=== PATIENT | female | born 1990 | race American Indian/Alaskan Native ===

== ENCOUNTER 2017-06-12 15:34 | Emergency (ER) | payer MEDICAID ==
[2017-06-12 16:45] VITALS: BP 106/71
--- NOTE | 2017-06-12 17:24 | Emergency Department Report ---
Entered by KEYANA SANCHEZ, acting as scribe for LEFTY FISCHER FNP. <LEFTY FISCHER - Last Filed: 06/12/17 17:19> ED Female HPI - General Chief complaint: Urogenital-Female Stated complaint: VAGINAL PAIN Time Seen by Provider: 06/12/17 17:00 Source: patient Mode of arrival: Ambulatory Limitations: No Limitations - History of Present Illness Initial comments: 26 y/o female presents to the ED c/o white vaginal discharge x 4 days. Associated symptoms include vaginal pain, dysuria and itching but she denies abdominal pain, nausea, vomiting, fever and chills. Patient states pain is worse after showering and that she recently used a different body wash with sea salt. Admits to unprotected sex with one partner. No alleviating factors but aggravated by sitting down. Allergic to hydrocodone. MD Complaint: vaginal discharge Onset/Timin -: days(s) Radiation: non-radiating Quality: other (itching) Consistency: constant Improves with: none Worsens with: other (sitting down) Associated Symptoms: dysuria, other (itching, vaginal pain). denies: abdominal pain, nausea/vomiting, fever/chills - Related Data Sexually active: Yes Previous Rx's Medication Instructions Recorded Last Taken Type Ciprofloxacin HCl [Ciloxan 0.3% 1 drop OP Q1HR #1 bottle 03/03/15 2 Days Ago Rx OPTH SOLN] 1 drop Ferrous Sulfate [Feosol 325 MG tab] 325 mg PO TID #90 tablet 08/30/15 Unknown Rx Ibuprofen [Motrin 800 MG tab] 800 mg PO Q8HR PRN #90 tablet 08/30/15 Unknown Rx oxyCODONE /ACETAMINOPHEN [Percocet 1 tab PO Q6HR PRN #30 tablet 08/30/15 Unknown Rx 5/325 mg] Ferrous Sulfate [Feosol 325 MG tab] 325 mg PO BID #60 tablet 11/08/16 Unknown Rx Ibuprofen [Motrin 600 MG tab] 600 mg PO Q6H #30 tablet 11/08/16 Unknown Rx Vit-Fe Fumar-FA [ 1 each PO QDAY #30 tablet 11/08/16 Unknown Rx Vitamin] Cephalexin [Keflex] 500 mg PO BID #14 capsule 06/12/17 Unknown Rx Clindamycin 2% [Clindamycin 2% VAG 1 applicatio VG QHS #1 package 06/12/17 Unknown Rx CREAM] Allergies Allergy/AdvReac Type Severity Reaction Status Date / Time hydrocodone Allergy Nausea Verified 08/30/15 10:38 ED Review of Systems Comment: All other systems reviewed and negative Constitutional: denies: chills, fever Eyes: denies: eye pain, eye discharge, vision change ENT: denies: ear pain, throat pain Respiratory: denies: cough, shortness of breath, wheezing Cardiovascular: denies: chest pain, palpitations Endocrine: no symptoms reported Gastrointestinal: denies: abdominal pain, nausea, vomiting Genitourinary: dysuria, discharge (white), other (vaginal pain, itching) Musculoskeletal: denies: back pain, joint swelling, arthralgia Skin: denies: rash, lesions Neurological: denies: headache, weakness, paresthesias Psychiatric: denies: anxiety, depression Hematological/Lymphatic: denies: easy bleeding, easy bruising ED Past Medical Hx - Past Medical History Previous Medical History?: No Hx Hypertension: No Hx Heart Attack/AMI: No Hx Congestive Heart Failure: No Hx Diabetes: No Hx Deep Vein Thrombosis: No Hx Pulmonary Embolism: No Hx Liver Disease: No Hx Renal Disease: No Hx Sickle Cell Disease: No Hx Headaches / Migraines: No Hx Seizures: No Hx Asthma: No Hx COPD: No Hx Tuberculosis: No Hx HIV: No - Surgical History Past Surgical History?: Yes Additional Surgical History: C Section - Social History Smoking Status: Never Smoker Substance Use Type: None - Medications Home Medications: Home Medications Medication Instructions Recorded Confirmed Last Taken Type Ciprofloxacin HCl [Ciloxan 0.3% 1 drop OP Q1HR #1 bottle 03/03/15 11/08/16 2 Days Ago Rx OPTH SOLN] 1 drop Ferrous Sulfate [Feosol 325 MG tab] 325 mg PO TID #90 tablet 08/30/15 11/08/16 Unknown Rx Ibuprofen [Motrin 800 MG tab] 800 mg PO Q8HR PRN #90 tablet 08/30/15 11/08/16 Unknown Rx oxyCODONE /ACETAMINOPHEN [Percocet 1 tab PO Q6HR PRN #30 tablet 08/30/15 Unknown Rx 5/325 mg] Ferrous Sulfate [Feosol 325 MG tab] 325 mg PO BID #60 tablet 12/25/16 Unknown Rx Ibuprofen [Motrin 600 MG tab] 600 mg PO Q6H #30 tablet 11/08/16 Unknown Rx Vit-Fe Fumar-FA [ 1 each PO QDAY #30 tablet 11/08/16 Unknown Rx Vitamin] Cephalexin [Keflex] 500 mg PO BID #14 capsule 06/12/17 Unknown Rx Clindamycin 2% [Clindamycin 2% VAG 1 applicatio VG QHS #1 package 06/12/17 Unknown Rx CREAM] ED Physical Exam - General Limitations: No Limitations General appearance: alert, in no apparent distress - Head Head exam: Present: atraumatic, normocephalic, normal inspection - Eye Eye exam: Present: normal appearance - ENT ENT exam: Present: mucous membranes moist - Neck Neck exam: Present: normal inspection - Respiratory Respiratory exam: Present: normal lung sounds bilaterally. Absent: respiratory distress - Cardiovascular Cardiovascular Exam: Present: regular rate, normal rhythm, normal heart sounds. Absent: systolic murmur, diastolic murmur, rubs, gallop - GI/Abdominal GI/Abdominal exam: Present: soft, normal bowel sounds - External exam: Present: normal external exam Speculum exam: Present: vaginal discharge, cervical discharge Bi-manual exam: Present: normal bi-manual exam. Absent: cervical motion tendernes, adnexal tenderness - Extremities Exam Extremities exam: Present: normal inspection - Back Exam Back exam: Present: normal inspection - Neurological Exam Neurological exam: Present: alert, oriented X3 - Psychiatric Psychiatric exam: Present: normal affect, normal mood - Skin Skin exam: Present: warm, dry, intact, normal color. Absent: rash - Other Other exam information: flatwork tier present during external/speculum/bi-manual exam Keyana Sanchez ED Course Vital Signs 06/12/17 16:38 Temperature 98.7 F Pulse Rate 86 Respiratory 18 Rate Blood Pressure 106/71 O2 Sat by Pulse 99 Oximetry ED Medical Decision Making - Medical Decision Making 26 year old female patient presents today with vaginal discharge. Wet prep done . reveals [...].Patient is in no acute distress at this time. She will be discharged home and is encouraged to follow up with a primary care provider. She is encouraged to return to the emergency room for any worsening symptoms. ED Disposition Clinical Impression: Positive test UTI (urinary tract infection) Qualifiers: Urinary tract infection type: acute cystitis Hematuria presence: without hematuria Qualified Code(s): N30.00 - Acute cystitis without hematuria Vaginitis Qualifiers: Chronicity: acute Qualified Code(s): N76.0 - Acute vaginitis Disposition: TO HOME OR SELFCARE Condition: Good Instructions: Vaginitis (ED), Urinary Tract Infection in Women (ED) Additional Instructions: follow up with [facility] in 3 days as scheduled [facility] [phone] Prescriptions: Clindamycin 2% [Clindamycin 2% VAG CREAM] 1 applicatio VG QHS #1 package Cephalexin [Keflex] 500 mg PO BID #14 capsule Referrals: PRIMARY CARE, [Primary Care Provider] - 3-5 Days Forms: Work/School Release Form(ED) <MALIK CADENA - Last Filed: 06/12/17 17:54> ED Medical Decision Making - Lab Data Laboratory Tests 06/12/17 16:50 Urine Color Yellow Urine Turbidity Clear Urine pH 6.0 Ur Specific [place] 1.019 Urine Protein <15 mg/dl Urine Glucose (UA) Neg Urine Ketones Neg Urine Blood Sm Urine Nitrite Neg Ur Reducing Substances Not Reportable Urine Bilirubin Neg Urine Ictotest Not Reportable Urine Urobilinogen < 2.0 Ur Leukocyte Esterase Lg Urine WBC (Auto) 32.0 H Urine RBC (Auto) 7.0 U Epithel Cells (Auto) 4.0 Urine Mucus 2+ HGG Positive, ED Disposition Is pt being admited?: No Does the pt Need Aspirin: No Time of Disposition: 17:53 This documentation as recorded by the LAURA eddy ELIZABETH,accurately reflects the service I personally performed and the decisions made by AMADO smith DENETRA L, LUIS.
[2017-06-12 17:29] LABS: Bilirubin,Urine NEG (Negative); Blood,Urine SM (Negative); Ketones,Urine NEG (Negative); Leukocyte Esterase,Urine LG (Negative); Mucus,Urine 2+ /HPF; Nitrite,Urine NEG (Negative); Protein,Urine <15 mg/dL mg/dL (Negative); Urobilinogen,Urine < 2.0 mg/dL (<2.0)
== END 2017-06-12 17:56 | disposition home or self-care (01) ==
LOC: ED 15:34
DX: N30.00 Acute cystitis without hematuria (principal); Z33.1 Pregnant state, incidental; Z88.8 Allergy status to other drugs, medicaments and biological substances
CPT/HCPCS: 81001; 81025; 87210; 87591; 99284

== ENCOUNTER 2017-10-08 11:11 | Emergency (ER) | payer MEDICAID ==
[2017-10-08 11:29] VITALS: BP 118/95
[2017-10-08 13:38] LABS: Bacteria,Urine 2+ /HPF (Negative); Bilirubin,Urine NEG (Negative); Blood,Urine SM (Negative); Ketones,Urine NEG (Negative); Leukocyte Esterase,Urine LG (Negative); Mucus,Urine FEW /HPF; Nitrite,Urine NEG (Negative); Protein,Urine <15 mg/dL mg/dL (Negative); Urobilinogen,Urine < 2.0 mg/dL (<2.0)
[2017-10-08] MEDS ORDERED: ROCEPHIN IM ONE (13:54)
[2017-10-08] MEDS ORDERED: ZITHROMAX PO ONE (13:54)
[2017-10-08] MEDS ORDERED: XYLOCAINE 1% MPF 5 mL INFILTRATI ONE (13:54)
--- NOTE | 2017-10-08 13:58 | Emergency Department Report ---
ED Female HPI - General Chief complaint: Urogenital-Female Stated complaint: VAGINAL DISCOMFORT Time Seen by Provider: 10/08/17 12:47 Source: patient Mode of arrival: Ambulatory Limitations: No Limitations - History of Present Illness MD Complaint: dysuria, possible STD Onset/Timin -: week(s) - Related Data Previous Rx's Medication Instructions Recorded Last Taken Type Ciprofloxacin HCl [Ciloxan 0.3% 1 drop OP Q1HR #1 bottle 03/03/15 2 Days Ago Rx OPTH SOLN] ~08/29/15 1 drop Ferrous Sulfate [Feosol 325 MG tab] 325 mg PO TID #90 tablet 08/30/15 Unknown Rx Ibuprofen [Motrin 800 MG tab] 800 mg PO Q8HR PRN #90 tablet 08/30/15 Unknown Rx oxyCODONE /ACETAMINOPHEN [Percocet 1 tab PO Q6HR PRN #30 tablet 08/30/15 Unknown Rx 5/325 mg] Ferrous Sulfate [Feosol 325 MG tab] 325 mg PO BID #60 tablet 11/08/16 Unknown Rx Ibuprofen [Motrin 600 MG tab] 600 mg PO Q6H #30 tablet 11/08/16 Unknown Rx Vit-Fe Fumar-FA [ 1 each PO QDAY #30 tablet 11/08/16 Unknown Rx Vitamin] Cephalexin [Keflex] 500 mg PO BID #14 capsule 06/12/17 Unknown Rx Clindamycin 2% [Clindamycin 2% VAG 1 applicatio VG QHS #1 package 06/12/17 Unknown Rx CREAM] Clotrimazole [3-Day Vaginal Cream] 21 gm VG QHS #1 cream.appl 10/08/17 Unknown Rx Nitrofurantoin Monohyd/M-Cryst 100 mg PO BID #14 capsule 10/08/17 Unknown Rx [Macrobid 100 mg Capsule] metroNIDAZOLE [Metronidazole] 500 mg PO BID #14 tablet 10/08/17 Unknown Rx Allergies Allergy/AdvReac Type Severity Reaction Status Date / Time hydrocodone Allergy Nausea Verified 08/30/15 10:38 ED Review of Systems ROS: Stated complaint: VAGINAL DISCOMFORT Other details as noted in HPI ED Past Medical Hx - Past Medical History Hx Hypertension: No Hx Heart Attack/AMI: No Hx Congestive Heart Failure: No Hx Diabetes: No Hx Deep Vein Thrombosis: No Hx Pulmonary Embolism: No Hx Liver Disease: No Hx Renal Disease: No Hx Sickle Cell Disease: No Hx Headaches / Migraines: No Hx Seizures: No Hx Asthma: No Hx COPD: No Hx Tuberculosis: No Hx HIV: No - Surgical History Additional Surgical History: C Section - Social History Smoking Status: Never Smoker Substance Use Type: None - Medications Home Medications: Home Medications Medication Instructions Recorded Confirmed Last Taken Type Ciprofloxacin HCl [Ciloxan 0.3% 1 drop OP Q1HR #1 bottle 03/03/15 11/08/16 2 Days Ago Rx OPTH SOLN] ~08/29/15 1 drop Ferrous Sulfate [Feosol 325 MG tab] 325 mg PO TID #90 tablet 08/30/15 11/08/16 Unknown Rx Ibuprofen [Motrin 800 MG tab] 800 mg PO Q8HR PRN #90 tablet 08/30/15 11/08/16 Unknown Rx oxyCODONE /ACETAMINOPHEN [Percocet 1 tab PO Q6HR PRN #30 tablet 08/30/15 Unknown Rx 5/325 mg] Ferrous Sulfate [Feosol 325 MG tab] 325 mg PO BID #60 tablet 11/08/16 Unknown Rx Ibuprofen [Motrin 600 MG tab] 600 mg PO Q6H #30 tablet 11/08/16 Unknown Rx Vit-Fe Fumar-FA [ 1 each PO QDAY #30 tablet 11/08/16 Unknown Rx Vitamin] Cephalexin [Keflex] 500 mg PO BID #14 capsule 06/12/17 Unknown Rx Clindamycin 2% [Clindamycin 2% VAG 1 applicatio VG QHS #1 package 06/12/17 Unknown Rx CREAM] Clotrimazole [3-Day Vaginal Cream] 21 gm VG QHS #1 cream.appl 10/08/17 Unknown Rx Nitrofurantoin Monohyd/M-Cryst 100 mg PO BID #14 capsule 10/08/17 Unknown Rx [Macrobid 100 mg Capsule] metroNIDAZOLE [Metronidazole] 500 mg PO BID #14 tablet 10/08/17 Unknown Rx ED Physical Exam - General Limitations: No Limitations ED Course Vital Signs 10/08/17 11:25 Temperature 98.6 F Pulse Rate 86 Respiratory 20 Rate Blood Pressure 118/95 O2 Sat by Pulse 99 Oximetry Critical care attestation.: If time is entered above; I have spent that time in minutes in the direct care of this critically ill patient, excluding procedure time. ED Disposition Clinical Impression: Bacterial vaginosis Vaginal discharge during Qualifiers: Trimester: third trimester Qualified Code(s): O26.893 - Other specified related conditions, third trimester; N89.8 - Other specified noninflammatory disorders of vagina; N89.8 - Other specified noninflammatory disorders of vagina Disposition: - TO HOME OR SELFCARE Is pt being admited?: No Does the pt Need Aspirin: No Condition: Stable Instructions: Bacterial Vaginosis (ED), Vulvovaginal Candidiasis (ED) Prescriptions: Clotrimazole [3-Day Vaginal Cream] 21 gm VG QHS #1 cream.appl metroNIDAZOLE [Metronidazole] 500 mg PO BID #14 tablet Nitrofurantoin Monohyd/M-Cryst [Macrobid 100 mg Capsule] 100 mg PO BID #14 capsule Referrals: [facility] [Provider Group] - 3-5 Days Forms: STI Treatment and Prevention, Work/School Release Form(ED) Time of Disposition: 13:57
== END 2017-10-08 14:23 | disposition home or self-care (01) ==
LOC: ED 11:11
DX: O26.893 Other specified pregnancy related conditions, third trimester (principal); N76.0 Acute vaginitis; Z98.890 Other specified postprocedural states; Z88.6 Allergy status to analgesic agent; Z3A.00 Weeks of gestation of pregnancy not specified
CPT/HCPCS: 81001; 87086; 87210; 87591; 96372; 99283; J0696

== ENCOUNTER 2017-12-27 14:51 | Emergency (ER) | payer MEDICAID | END 2017-12-27 15:00 | disposition left against medical advice (07) | LOC: ED 14:51 | DX: N89.8 Other specified noninflammatory disorders of vagina (principal); Z53.21 Procedure and treatment not carried out due to patient leaving prior to being seen by health care provider ==

== ENCOUNTER 2018-01-09 07:32 | Inpatient (IN) | payer MEDICAID ==
[2018-01-09] MEDS ORDERED: LACTATED RINGERS 2,000 ML ONE (08:03)
[2018-01-09] MEDS ORDERED: REGLAN ONE (08:05)
[2018-01-09] MEDS ORDERED: PEPCID IV ONE ×2 (08:05→08:06)
[2018-01-09] MEDS ORDERED: PITOCin/NS 20 UNIT/1000ML DRIP 20,000 MILLIUNITS/1,000 ML BAG IV ONE (08:05)
[2018-01-09] MEDS ORDERED: ANCEF/STERILE WATER 2 GM/20 ML 2 GM/20 ML SYRINGE IV ONE (08:05)
[2018-01-09] MEDS ORDERED: BICITRA ONE (08:05)
[2018-01-09] MEDS ORDERED: REGLAN IV ONE (08:06)
[2018-01-09] MEDS ORDERED: BICITRA PO ONE (08:06)
--- NOTE | 2018-01-09 08:10 | History and Physical Report ---
History of Present Illness Date of examination: 01/09/18 (Pt presents to Triage via EMS in labor Pt has not had PNC) Chief complaint: contractions starting @ 2200 last evening Pt arrived by EMS History of present illness: This is a unconfirmed EDC pt states it was 01/06/18 based on an US she had some time back at a place across the street from the hospital. 05-29-14 Primary section intolerance 08-30-15 Repeat section IUGR +GBS 11-07-16 no care precipitous labor Pt denies any other surgeries Denies any medical history Admits to marijuana use Pt states she had"some" care but cannot remember the last time she was seen. She did not receive Rhogam despite being Rh negative. Past History - Obstetrical History Expected Date of Delivery: 01/06/18 (per the pt) Actual Gestation: 40 Week(s) 3 Day(s) : 4 Para: 3 (2 previous c/s) Hx # Term Pregnancies: 3 Number of Living Children: 3 Medications and Allergies Allergies Allergy/AdvReac Type Severity Reaction Status Date / Time hydrocodone Allergy Nausea Verified 08/30/15 10:38 Home Medications Medication Instructions Recorded Confirmed Last Taken Type Ciprofloxacin HCl [Ciloxan 0.3% 1 drop OP Q1HR #1 bottle 03/03/15 11/08/16 2 Days Ago Rx OPTH SOLN] ~08/29/15 1 drop Ferrous Sulfate [Feosol 325 MG tab] 325 mg PO TID #90 tablet 08/30/15 11/08/16 Unknown Rx Ibuprofen [Motrin 800 MG tab] 800 mg PO Q8HR PRN #90 tablet 08/30/15 11/08/16 Unknown Rx oxyCODONE /ACETAMINOPHEN [Percocet 1 tab PO Q6HR PRN #30 tablet 08/30/15 Unknown Rx 5/325 mg] Ferrous Sulfate [Feosol 325 MG tab] 325 mg PO BID #60 tablet 11/08/16 Unknown Rx Ibuprofen [Motrin 600 MG tab] 600 mg PO Q6H #30 tablet 11/08/16 Unknown Rx Vit-Fe Fumar-FA [ 1 each PO QDAY #30 tablet 11/08/16 Unknown Rx Vitamin] Cephalexin [Keflex] 500 mg PO BID #14 capsule 06/12/17 Unknown Rx Clindamycin 2% [Clindamycin 2% VAG 1 applicatio VG QHS #1 package 06/12/17 Unknown Rx CREAM] Clotrimazole [3-Day Vaginal Cream] 21 gm VG QHS #1 cream.appl 10/08/17 Unknown Rx Nitrofurantoin Monohyd/M-Cryst 100 mg PO BID #14 capsule 10/08/17 Unknown Rx [Macrobid 100 mg Capsule] metroNIDAZOLE [Metronidazole] 500 mg PO BID #14 tablet 10/08/17 Unknown Rx Active Meds: Active Medications Citric Acid/Sodium Citrate (Bicitra) 30 ml PO ONCE ONE Stop: 01/09/18 08:07 Famotidine (Pepcid) 20 mg IV ONCE ONE Stop: 01/09/18 08:07 Cefazolin Sodium (Ancef/Sterile Water 2 Gm/20 Ml) 2 gm in 20 mls @ 80 mls/hr IV PREOP NR PRN Reason: Protocol Lactated Ringer's (Lactated Ringers) 1,000 mls @ 2,250 mls/hr IV PREOP CAROLINE Stop: 01/10/18 09:27 Oxytocin/Sodium Chloride (Pitocin/Ns 20 Unit/1000ml Drip) 20 units in 1,000 mls @ 0 mls/hr IV TITR CAROLINE PRN Reason: As Directed Metoclopramide HCl (Reglan) 10 mg IV ONCE ONE Stop: 01/09/18 08:07 - Vital Signs Vital signs: Vital Signs Pulse Pulse Ox 87 99 01/09/18 07:42 01/09/18 07:42 Temp Pulse Resp BP Pulse Ox 113 H 20 135/86 99 01/09/18 08:07 01/09/18 07:52 01/09/18 07:53 01/09/18 08:07 - Physical Exam Breasts: Cardiovascular: Regular rate, Normal S1, Normal S2 Lungs: Positive: Clear to auscultation, Normal air movement Abdomen: Positive: normal appearance, soft, normal bowel sounds. Negative: distention, tenderness Genitourinary (Female): Positive: normal external genitalia, normal perenium Vulva: both: normal Vagina: Positive: normal moisture. Negative: discharge Cervix: Negative: lesion, discharge Uterus: Positive: normal size, normal contour Adnexa: both: normal Anus/Rectum: Positive: normal perianal skin, heme negative. Negative: rectal mass, hemorrhoids Extremities: Positive: edema Deep Tendon Reflex Grade: Normal +2 - Obstetrical FHR: category 1 Uterine Contraction Monitor Mode: External Cervical Dilatation: 4 (BBOW) Cervical Effacement Percentage: 90 station: -1 Uterine Contraction Frequency (min): 5-6 Uterine Contraction Duration: 45 Uterine Contraction Pattern: Regular Uterine Tone Measurement Phase: Resting Uterine Contraction Intensity: Mild Results Result Diagrams: 01/09/18 08:15 All other labs normal. NO CARE Assessment and Plan - Patient Problems (1) Insufficient care Onset Date: ~01/09/18 Current Visit: Yes Status: Acute Qualifiers: Trimester: third trimester Qualified Code(s): O09.33 - Supervision of with insufficient care, third trimester Plan to address problem: 27yo previous c/s X 2 one Arrived via EMS in labor Pt crying requesting Explained to pt that [facility] does not offer Pt has not had PNC US ordered OB labs ordered. notified of pt's arrival Order given to move forward with repeat c /s Consents signed.
[2018-01-09] MEDS: LACTATED RINGERS 1,000 ML IV SCH ×2 (08:30→09:16)
[2018-01-09 08:39] LABS: Basophils # (Auto) 0.1 K/mm3 (0.0-0.1); Basophils % (Auto) 0.8 % (0.0-1.8); Eosinophils # (Auto) 0.1 K/mm3 (0.0-0.4); Eosinophils % (Auto) 0.6 % (0.0-4.3); Hematocrit 31.1 % (30.3-42.9); Hemoglobin 9.6 gm/dl (10.1-14.3); Mean Corpuscular HGB Conc 31 % (30-34); Mean Corpuscular Volume 76 fl (79-97); Monocytes # (Auto) 0.8 K/mm3 (0.0-0.8); Monocytes % (Auto) 9.1 % (0.0-7.3); Platelet Count 604 K/mm3 (140-440); Red Cell Distribution Width 19.5 % (13.2-15.2)
[2018-01-09 08:45] LABS: Mean Corpuscular Hemoglobin 23 pg (28-32)
[2018-01-09] MEDS ORDERED: ANCEF/STERILE WATER 2 GM/20 ML 2 GM/20 ML SYRINGE IV NR (09:00)
[2018-01-09] MEDS ORDERED: PITOCin/NS 20 UNIT/1000ML DRIP 20 UNITS/1,000 ML BAG IV SCH ×2 (09:00→12:19)
[2018-01-09 09:07] LABS: Rubella IgG Antibody Immune (Immune)
--- NOTE | 2018-01-09 09:20 | Ultrasound Report ---
History: No care. Gestation: Single Position: Cephalic Amniotic Fluid: AMINA = 12.3 cm Placenta: The right lateral Placental Grade: 2 Heart Rate: 126 BPM ANATOMY VISUALIZED: Normal. Stomach Kidneys Bladder Diaphragm 4 Chamber Heart Heart 3 Vessel Cord Abd. Cord Insert nonvisualized. SPINE VISUALIZED: Longitudinal Transverse AP Limited spine due to position. BPD: 8.8 cm = 35 w the d HC: 31.6 cm = 35 w 4 point d AC: 29.6 cm = 33 w 4 d FL: 7.2 cm = 26 w 5 d HC/AC Ratio: 1.07 Cephalic Index: 81.2 Estimated Weight: 2535 grams Clinical age = 40 w 4 d EDC: 01/05/18 US Gest. Age = 35 w 2 d EDC: 02/11/18
[2018-01-09 09:31] LABS: Hepatitis C Virus Antibody Non-Reactive (NonReactive)
[2018-01-09 09:51] LABS: Bilirubin,Urine NEG (Negative); Blood,Urine NEG (Negative); Color,Urine Straw (Yellow); Protein,Urine <15 mg/dL mg/dL (Negative); Urobilinogen,Urine < 2.0 mg/dL (<2.0)
[2018-01-09] MEDS ORDERED: ASTRAMORPH PF 10MG/10ML ONE (09:51)
[2018-01-09 09:55] LABS: WBC,Urine < 1.0 /HPF (0.0-6.0)
[2018-01-09] MEDS ORDERED: WATER FOR IRRIG STERILE IR ONE (10:00)
[2018-01-09] MEDS ORDERED: NACL 0.9% IR ONE (10:01)
[2018-01-09 10:12] LABS: Amphetamine Screen,Urine PRESUMPTIVE NEGATIVE; Benzodiazepines Screen,Urine PRESUMPTIVE NEGATIVE; Cannabinoid Screen,Urine PRESUMPTIVE NEGATIVE; Cocaine Screen,Urine PRESUMPTIVE NEGATIVE; Methadone Screen,Urine PRESUMPTIVE NEGATIVE; Opiate Screen,Urine PRESUMPTIVE NEGATIVE
[2018-01-09] MEDS ORDERED: XYLOCAINE MPF 2% ONE ×2 (10:14→10:16)
[2018-01-09] MEDS ORDERED: ZOFRAN ONE (10:30)
[2018-01-09] MEDS ORDERED: NEO SYNEPHRINE/NS Syringe(OR USE) IV ONE (10:40)
[2018-01-09] MEDS ORDERED: NARCAN 0.4 MG/1 ML IV PRN (11:16)
[2018-01-09] MEDS ORDERED: PHENERGAN PR PRN (11:16)
[2018-01-09] MEDS ORDERED: ZOFRAN IV PRN ×2 (11:16→14:10)
[2018-01-09] MEDS ORDERED: PHENERGAN PO PRN (11:16)
--- NOTE | 2018-01-09 11:17 | Anesthesia Consultation ---
Anesthesia Consult and Med Hx Date of service: 01/09/18 - Airway Anesthetic Teeth Evaluation: Good ROM Head & Neck: Adequate Mental/Hyoid Distance: Adequate Mallampati Class: Class II Intubation Access Assessment: Possibly Difficult - Pulmonary Exam CTA: Yes - Cardiac Exam Cardiac Exam: RRR - Pre-Operative Health Status ASA Pre-Surgery Classification: ASA2 Proposed Anesthetic Plan: Epidural, Spinal - Pulmonary Hx Smoking: Yes Hx Asthma: No COPD: No Hx Pneumonia: No - Cardiovascular System Hx Hypertension: No Hx Coronary Artery Disease: No Hx Heart Attack/AMI: No Hx Angina: No Hx Cardia Arrhythmia: No Hx Valvular Heart Disease: No - Central Nervous System Hx Seizures: No CVA: No Hx Back Pain: No Hx Psychiatric Problems: No - Gastrointestinal Hx Ulcer: No Hx Gastroesophageal Reflux Disease: No - Endocrine Hx Renal Disease: No Hx End Stage Renal Disease: No Hx Liver Disease: No Hx Insulin Dependent Diabetes: No Hx Non-Insulin Dependent Diabetes: No Hx Thyroid Disease: No Hx Hypothyroidism: No Hx Hyperthyroidism: No - Hematic Hx Anemia: Yes (NO IRON) Hx Sickle Cell Disease: No - Other Systems Hx Alcohol Use: No Hx Substance Use: No Hx Cancer: No Hx Obesity: No
--- NOTE | 2018-01-09 11:17 | Operative Report ---
Operative Report Operative Report: Date of procedure: 01/09/2018 Pre-operative diagnosis: Intrauterine at 40 weeks and 4 days course complicated by limited care with 2 previous section and in active labor Post-operative diagnosis: Same plus meconium-stained fluid Procedure name(s): Repeat low transverse section Surgeon: Jayce Lancaster MD City Marshal: Maria Guadalupe Turcios certified nurse conditioning yard supervisor Anesthesia: Spinal epidural combined EBL: 500 mL Complications: None Findings:. Had normal uterus tubes and ovaries bilaterally minimal amount of adhesions anterior uterine wall and anterior abdominal wall. Female infant weight 5 lbs. 7 oz. Apgars 8 at 1 minute 9 at 5 minutes meconium fluid Specimen(s): Placenta Procedure: The patient was brought to the operating room. A spinal was placed without any complications. She was then placed in left lateral tilt. Prepped and draped in the usual sterile manner. After testing for adequate anesthesia level, a Pfannenstiel incision was made through her previous scar. This incision was taken down to the fascia. The fascia was then nicked in the midline. This incision was extended out laterally with Bradford scissors. The fascia was then sharply and bluntly from the underlying rectus muscles. The rectus muscles were bluntly and sharply . The peritoneum was then entered with the fig bar machine operator's fingers. This incision was spread vertically with care not to damage the bladder below. The bladder flap was then formed sharply and bluntly with Metzenbaum scissors. Bladder blade placed. A transverse incision was made in lower uterine segment. This incision was extended laterally with the operators fingers. The amniotic sac was then entered bluntly with the fig bar machine operator's fingers. The was delivered from the vertex position. Bulb suction on the mother's abdomen. Cord was double clamped and cut. The infant was then passed to the nursery personnel who were in attendance. The above scores were given by the nursery personnel. The placenta was then bluntly removed. The uterus was then externalized and wiped clean the remaining products. The uterine incision was closed in layers. The first incision was closed in a locking manner using 0 Vicryl. This was followed by imbricating stitch also with 0 Vicryl. This closure was hemostatic. The bladder flap was copiously irrigated and found to be hemostatic. The pelvis was copiously irrigated and found to be hemostatic. The uterus was then placed back to the patient's abdomen. The retractors were removed. The rectus muscles were inspected and found to be hemostatic. The fascia was then closed in a running manner using 0 Vicryl. This incision was hemostatic irrigation Bovie. The skin was reapproximated with 4-0 Vicryl subcuticularly. The patient tolerated procedure well. Her urine was clear. The was admitted to the [well baby] nursery. The patient was accompanied to recovery room in good condition. Instrument count correct 3
--- NOTE | 2018-01-09 11:18 | Post Anesthesia Evaluation ---
- Post Anesthesia Evaluation Patient Participated: Yes Airway Patent: Yes Stable Respiratory Function: Yes Nausea/Vomiting: No Temp > 96.8F: Yes Pain Manageable: Yes Adequeate Hydration: Yes Anesthesia Complications: No Block Receding Appropriately: Yes
--- NOTE | 2018-01-09 11:18 | Anesthesia Day of Surgery ---
Anesthesia Day of Surgery - Day of Surgery Patient Examined: Yes Patient H&P Reviewed: Yes Patient is NPO: Yes
[2018-01-09] MEDS ORDERED: SODIUM CHLORIDE FLUSH SYRINGE 10 ML IV NR (12:00)
[2018-01-09] MEDS ORDERED: LANSINOH TP PRN (12:19)
[2018-01-09] MEDS ORDERED: TUCKS PAD TP PRN (12:19)
[2018-01-09] MEDS: TORADOL IV SCH (12:28)
[2018-01-09] MEDS ORDERED: BENADRYL IV ONE (14:11)
[2018-01-09] MEDS ORDERED: BENADRYL PO PRN (14:12)
[2018-01-09] MEDS: D5LR 1,000 ML IV SCH ×2 (16:14→23:57)
[2018-01-09] MEDS ORDERED: ANCEF/NS 1 GM/50 ML 1 GM/50 ML BAG IV SCH (17:00)
[2018-01-09] MEDS ORDERED: NUBAIN IV ONE ×2 (18:12→19:00)
[2018-01-09] MEDS ORDERED: NORCO 5/325 PO PRN (21:53)
[2018-01-09] MEDS: ceFAZolin 1 GM in NACL 0.9% 20 ML IV SCH (22:28)
[2018-01-10] MEDS: TORADOL IV SCH (04:55)
[2018-01-10] MEDS: ceFAZolin 1 GM in NACL 0.9% 20 ML IV SCH (05:38)
[2018-01-10 08:04] LABS: Hematocrit 22.4 % (30.3-42.9); Hemoglobin 7.2 gm/dl (10.1-14.3)
[2018-01-10] MEDS: FEOSOL PO SCH (11:47)
[2018-01-10] MEDS: PRENATAL VITAMIN PO SCH (11:48)
[2018-01-10] MEDS: PERCOCET 5/325 PO PRN ×2 (12:12→16:30)
--- NOTE | 2018-01-10 14:25 | Progress Note ---
Assessment and Plan - Patient Problems (1) Insufficient care Onset Date: ~01/09/18 Current Visit: Yes Status: Acute Qualifiers: Trimester: third trimester Qualified Code(s): O09.33 - Supervision of with insufficient care, third trimester (2) Rh negative status during Current Visit: Yes Status: Acute (3) delivery delivered Current Visit: No Status: Acute (4) Anemia affecting Current Visit: Yes Status: Acute Subjective - Subjective Date of service: 01/10/18 Interval history: Patient's doing well. She was a walk-in and had a repeat section, which was #4. Admission hematocrit was 31 and now it's 22. We will recheck that tomorrow. However, she is completely asymptomatic. Patient reports: appetite normal, voiding normally, pain well controlled, ambulating normally [place]all: doing well Objective - Vital Signs Latest vital signs: Vital Signs Temp Pulse Resp BP Pulse Ox 01/10/18 08:40 98.5 F 79 18 134/85 100 01/10/18 04:42 97.7 F 75 20 127/85 100 01/10/18 00:56 97.7 F 73 20 125/79 98 01/09/18 21:24 98.4 F 71 20 127/74 99 Intake and Output 01/09/18 01/10/18 01/10/18 23:59 07:59 15:59 Intake Total 964.583 120 180 Output Total 550 1600 Balance 414.583 -1480 180 Intake: IV 964.583 D5lr 1,000 ml @ 125 mls/ 964.583 hr IV DIRECT CAROLINE Rx#: [id number] Oral 180 Intake, Free Water 120 Output: Urine 200 1600 Indwelling Catheter 200 800 Void 800 Emesis 350 Other: Total, Intake Amount 180 Total, Output Amount 200 800 - Exam Abdomen: Present: normal appearance, soft (bandage on and dry) Uterus: Present: firm Extremities: Present: normal Incision: Present: normal, dry - Labs Labs: Abnormal lab results 01/10/18 Range/Units 07:09 Hgb 7.2 L (10.1-14.3) gm/dl Hct 22.4 L D (30.3-42.9) %
--- NOTE | 2018-01-10 15:09 | Query-Anemia ---
[place]____Anisha Date:____01/10/18 [employer] Librarian/CDS:____Rohit Phone#:____[phone] Exercise your independent professional judgment when responding to this query. Questions asked do not imply a particular answer is desired or expected. We greatly appreciate your clarification on this issue. Clinical Documentation States: 27 year old female was admitted on 01/09/18 The Operative report (Dr. Lancaster 01/09/18) states " Pre-operative diagnosis: Intrauterine at 40 weeks and 4 days course complicated by limited care with 2 previous section and in active labor Post-operative diagnosis: Same plus meconium-stained fluid Procedure name(s): Repeat low transverse section EBL: 500 mL " The Progress note (Dr. Bernal 01/10/18) states " (4) Anemia affecting " Clinical Findings Show: 01/09/18 01/10/18 Hgb: 9.6 7.2 Hct: 31.1 22.4 Etiology: [ ] Anemia due to acute blood loss [ ] Anemia due to chronic blood loss [ ] Anemia secondary to ESRD [ ] Anemia secondary to neoplastic disease [ ] Iron deficiency anemia due to malabsorption [ ] GI Bleed from: [ ] Anemia of chronic disease ,Other: [ ] Precipitous Drop in Hemoglobin [ ] Precipitous Drop in Hematocrit [ ] Other: [ ] Unable to determine [ ] Comment/Explanation: Present on Admission: [ ] Yes (Y) [ ] Clinically undeterminable (W) [ ] No (N) Please also document response in your Progress Notes and/or Discharge Summary and indicate if the condition was present on admission. JOSE DAVID
[2018-01-10 17:49] LABS: Hematocrit 23.8 % (30.3-42.9); Hemoglobin 7.5 gm/dl (10.1-14.3)
[2018-01-11] MEDS: PERCOCET 5/325 PO PRN ×5 (00:21→22:30)
--- NOTE | 2018-01-11 07:37 | Discharge Summary ---
Providers - Providers Date of Admission: 01/09/18 07:33 Date of discharge: 01/11/18 (desires d/c home) Attending physician: JAYCE SHELDON 01/09/18 12:19 Consult to Distribution District Supervisor [CONS] Routine Reason For Exam: Primary care physician: JAYCE SHELDON Hospitalization Reason for admission: labor, prev c/s Condition: Good Procedures: repeat c/s Hospital course: uncomplicated c/s delivery and course Disposition: PR- TO HOME OR SELFCARE - Discharge Diagnoses (1) delivery delivered Status: Acute Core Measure Documentation - Palliative Care Palliative Care/ Comfort Measures: Not Applicable - Core Measures Any of the following diagnoses?: none Exam - Constitutional Vitals: Temp Pulse Resp BP Pulse Ox 98.9 F 78 18 117/67 98 01/11/18 00:48 01/11/18 00:48 01/11/18 00:48 01/11/18 00:48 01/10/18 16:34 General appearance: Present: no acute distress, well-nourished - EENT Eyes: Present: PERRL ENT: hearing intact, clear oral mucosa - Neck Neck: Present: supple, normal ROM - Respiratory Respiratory effort: normal Respiratory: bilateral: CTA - Cardiovascular Rhythm: regular Heart Sounds: Present: S1 & S2. Absent: rub, click - Extremities Extremities: pulses symmetrical, No edema Peripheral Pulses: within normal limits - Abdominal General gastrointestinal: Present: soft, non-tender, non-distended, normal bowel sounds Female genitourinary: Present: normal - Integumentary Integumentary: Present: clear, warm, dry - Musculoskeletal Musculoskeletal: gait normal, strength equal bilaterally - Psychiatric Psychiatric: appropriate mood/affect, intact judgment & insight - Neurologic Neurologic: CNII-XII intact, moves all extremities - Additional findings Additional findings: Incision D&I, VSSAF, H&H stable w/o s/s anemia, lochia scant, breast feeding Plan Activity: advance as tolerated Weight Bearing Status: Full Weight Bearing Diet: regular Wound: open to air, keep clean and dry Follow up with: JAYCE SHELDON MD [Primary Care Provider] - 7 Days (Congratulations! Please call [phone] to schedule your incision check in 1 week. Call for any questions or concerns.) Prescriptions: Ferrous Sulfate [Feosol 325 MG tab] 325 mg PO BID #60 tablet Ibuprofen [Motrin 800 MG tab] 800 mg PO Q6H PRN #30 tablet PRN Reason: Pain oxyCODONE /ACETAMINOPHEN [Percocet 5/325 mg] 1 - 2 tab PO Q4H PRN #30 tablet PRN Reason: Pain, Moderate
[2018-01-11] MEDS: FEOSOL PO SCH (08:30)
[2018-01-11] MEDS: PRENATAL VITAMIN PO SCH (08:30)
[2018-01-11] MEDS: MOTRIN PO PRN ×2 (14:45→22:07)
[2018-01-11 17:39] VITALS: BP 133/82
== END 2018-01-11 22:40 | disposition home or self-care (01) | DRG 765 ==
LOC: TRG 07:32 → APU 07:33 → TRG 07:33 → APU 12:45 → OB 13:12
PROVIDERS: ADMIT Obstetrics & Gynecology; ATTEND Obstetrics & Gynecology
PROC: 10D00Z1 Extraction of Products of Conception, Low, Open Approach (ICD-10-PCS; principal; 2018-01-09)
DX: O34.211 Maternal care for low transverse scar from previous cesarean delivery (principal); O99.324 Drug use complicating childbirth; O99.03 Anemia complicating the puerperium; D64.9 Anemia, unspecified; F12.90 Cannabis use, unspecified, uncomplicated; O99.334 Smoking (tobacco) complicating childbirth; F17.200 Nicotine dependence, unspecified, uncomplicated; O77.0 Labor and delivery complicated by meconium in amniotic fluid; Z3A.40 40 weeks gestation of pregnancy; Z37.0 Single live birth; Z79.899 Other long term (current) drug therapy; O26.893 Other specified pregnancy related conditions, third trimester; Z67.11 Type A blood, Rh negative
CPT/HCPCS: 36415; 59025; 76805; 80307; 81001; 85014; 85018; 85025; 85660; 86592; 86706; 86762; 86803; 86850; 86900; 86901; 87806; 88307; 96360; 96361; 96374; 96375; 99211; C1765; G0463; J0690; J1885; J2274; J2300; J2370; J2405; J2590; J2765; J7120; J7121

== ENCOUNTER 2018-01-14 17:13 | Emergency (ER) | payer MEDICAID ==
[2018-01-14 17:25] VITALS: BP 152/50
[2018-01-14] MEDS ORDERED: MOTRIN PO ONE (19:50)
[2018-01-14] MEDS ORDERED: SILVER NITRATE TP ONE ×2 (19:50→20:33)
--- NOTE | 2018-01-14 20:12 | Emergency Department Report ---
ED Laceration HPI - HPI Chief Complaint: Laceration/Recheck/Suture Stated Complaint: POST OP INCISION LOOSE Time Seen by Provider: 01/14/18 19:16 Occurred When: Today Severity: mild Tetanus Status: Up to Date Laceration Symptoms: Yes Pain, No Foreign Body Sensation, No Numbness, No Weakness Other History: This 27-year-old female who presents to the ED status post C- section from 01/09/2018. Patient presents today from [facility] office stating that her incision feels like it's opened up a bit. She denies any odor, puslike discharge, swelling. She admits moderate pain from incision region ED Review of Systems ROS: Stated complaint: POST OP INCISION LOOSE Other details as noted in HPI Constitutional: denies: chills, fever Eyes: denies: eye pain, eye discharge, vision change ENT: denies: ear pain, throat pain Respiratory: denies: cough, shortness of breath, wheezing Cardiovascular: denies: chest pain, palpitations Endocrine: no symptoms reported Gastrointestinal: denies: abdominal pain, nausea, vomiting, diarrhea Genitourinary: denies: urgency, dysuria, discharge Musculoskeletal: denies: back pain, joint swelling, arthralgia Skin: denies: rash, lesions Neurological: denies: headache, weakness, paresthesias Psychiatric: denies: anxiety, depression Hematological/Lymphatic: denies: easy bleeding, easy bruising ED Past Medical Hx - Past Medical History Hx Hypertension: No Hx Heart Attack/AMI: No Hx Congestive Heart Failure: No Hx Diabetes: No Hx Deep Vein Thrombosis: No Hx Pulmonary Embolism: No Hx Liver Disease: No Hx Renal Disease: No Hx Sickle Cell Disease: No Hx Headaches / Migraines: No Hx Seizures: No Hx Asthma: No Hx COPD: No Hx Tuberculosis: No Hx HIV: No - Surgical History Additional Surgical History: C Section - Social History Smoking Status: Never Smoker - Medications Home Medications: Home Medications Medication Instructions Recorded Confirmed Last Taken Type Ciprofloxacin HCl [Ciloxan 0.3% 1 drop OP Q1HR #1 bottle 03/03/15 01/10/18 2 Days Ago Rx OPTH SOLN] ~08/29/15 1 drop Ferrous Sulfate [Feosol 325 MG tab] 325 mg PO TID #90 tablet 08/30/15 01/10/18 Unknown Rx Ibuprofen [Motrin 800 MG tab] 800 mg PO Q8HR PRN #90 tablet 08/30/15 01/10/18 Unknown Rx Ferrous Sulfate [Feosol 325 MG tab] 325 mg PO BID #60 tablet 11/08/16 01/10/18 Unknown Rx Ibuprofen [Motrin 600 MG tab] 600 mg PO Q6H #30 tablet 11/08/16 01/10/18 Unknown Rx Vit-Fe Fumar-FA [ 1 each PO QDAY #30 tablet 11/08/16 01/10/18 Unknown Rx Vitamin] Clindamycin 2% [Clindamycin 2% VAG 1 applicatio VG QHS #1 package 06/12/1701/10 Unknown Rx CREAM] Clotrimazole [3-Day Vaginal Cream] 21 gm VG QHS #1 cream.appl 10/08/17 01/10/18 Unknown Rx Nitrofurantoin Monohyd/M-Cryst 100 mg PO BID #14 capsule 10/08/17 01/10/18 Unknown Rx [Macrobid 100 mg Capsule] metroNIDAZOLE [Metronidazole] 500 mg PO BID #14 tablet 10/08/17 01/10/18 Unknown Rx Ferrous Sulfate [Feosol 325 MG tab] 325 mg PO BID #60 tablet 01/09/18 Unknown Rx Ibuprofen [Motrin 800 MG tab] 800 mg PO Q6H PRN #30 tablet 01/09/18 Unknown Rx oxyCODONE /ACETAMINOPHEN [Percocet 1 - 2 tab PO Q4H PRN #30 tablet 01/09/18 Unknown Rx 5/325 mg] Cephalexin [Keflex] 500 mg PO BID #14 capsule 01/14/18 Unknown Rx oxyCODONE /ACETAMINOPHEN [Percocet 1 tab PO Q6HR PRN #10 tablet 01/14/18 Unknown Rx 5/325 mg] Laceration Physical Exam - Exam General: Vital signs noted. No distress. Alert and acting appropriately. Laceration Location: Abdomen Full Body Front + Back: 1 - low transnerse inscision, moderately healed, slight open at middle of inscision. superficial opening, no bleeding, mod clear fluid. no wound dehiscense Laceration Exam: No Foreign Body, No Exposed Tendon, Vessel, or Nerve, No Tendon Injury, No Normal Distal CMS ED Course Vital Signs 01/14/18 17:19 Temperature 98.4 F Pulse Rate 78 Respiratory 17 Rate Blood Pressure 152/50 O2 Sat by Pulse 100 Oximetry ED Medical Decision Making - Medical Decision Making 27-year-old female presents with healing incision scar with mild opening at the incision site. ED course: Patient received Motrin ED. Subjective a nitrate was used stop the minor bleeding at the incision site. I discussed with the patient to follow up with [facility]. I discussed with the patient to keep incision dry and cleaning daily. Incision looks clean, mild draining, no odor, no pus, no swelling, no signs of infection I discussed the patient's limit movement of up and down stairs so asked to let the wound heal properly. Critical care attestation.: If time is entered above; I have spent that time in minutes in the direct care of this critically ill patient, excluding procedure time. ED Disposition Clinical Impression: Visit for wound check Disposition: TO HOME OR SELFCARE Is pt being admited?: No Does the pt Need Aspirin: No Condition: Stable Instructions: Acute Wound Care (ED) Additional Instructions: Make sure to follow up with the [facility] as discussed. Take all your medications as you've been prescribed. Keep wound clean as discussed. Final instructions on how to clean wound. Keep wound dry. If you have any worsening symptoms or develop new symptoms please return to ED immediately. Prescriptions: Cephalexin [Keflex] 500 mg PO BID #14 capsule oxyCODONE /ACETAMINOPHEN [Percocet 5/325 mg] 1 tab PO Q6HR PRN #10 tablet PRN Reason: Severe Pain Referrals: KAYCE RODNEY MD [Primary Care Provider] - 3-5 Days BRIAN JACOBS MD [Referring] - 3-5 Days Forms: Work/School Release Form(ED) Time of Disposition: 20:18
== END 2018-01-14 21:41 | disposition home or self-care (01) ==
LOC: ED 17:13
DX: T81.89XA Other complications of procedures, not elsewhere classified, initial encounter (principal); Z88.5 Allergy status to narcotic agent; Y83.8 Other surgical procedures as the cause of abnormal reaction of the patient, or of later complication, without mention of misadventure at the time of the procedure; Y92.89 Other specified places as the place of occurrence of the external cause
CPT/HCPCS: 93005; 93010; 99283

== ENCOUNTER 2019-01-22 09:46 | Inpatient (IN) | payer MEDICAID ==
[2019-01-22] MEDS ORDERED: LACTATED RINGERS 1,000 ML IV ONE (10:22)
[2019-01-22 10:58] LABS: Basophils # (Auto) 0.1 K/mm3 (0.0-0.1); Basophils % (Auto) 0.8 % (0.0-1.8); Eosinophils % (Auto) 0.2 % (0.0-4.3); Hematocrit 24.6 % (30.3-42.9); Hemoglobin 7.8 gm/dl (10.1-14.3); Lymphocytes # (Auto) 1.6 K/mm3 (1.2-5.4); Lymphocytes % (Auto) 17.1 % (13.4-35.0); Mean Corpuscular HGB Conc 32 % (30-34); Mean Corpuscular Volume 72 fl (79-97); Monocytes # (Auto) 0.9 K/mm3 (0.0-0.8); Monocytes % (Auto) 10.3 % (0.0-7.3); Platelet Count 659 K/mm3 (140-440); Red Blood Count 3.41 M/mm3 (3.65-5.03)
--- NOTE | 2019-01-22 10:58 | History and Physical Report ---
History of Present Illness Date of examination: 01/22/19 Chief complaint: Labor History of present illness: Pt is a 28yo BF EDC 01/24/19; EGA 39 5/7 weeks presents to L&D complaining of RUC's q 3-4 mins. She has had 4 previous C-sections and no care during this . She is currently dilated 4 cm, so we shall proceed with a repeat . Her hemoglobin and hematocrit is 7.8 and 24.6 so she will be transfused 1 unit of packed red blood cells during the surgery. Past History Past Medical History: no pertinent history Past Surgical History: section (x4) Social history: no significant social history, single - Obstetrical History Expected Date of Delivery: 01/24/19 Actual Gestation: 39 Week(s) 5 Day(s) : 5 Medications and Allergies Allergies Allergy/AdvReac Type Severity Reaction Status Date / Time hydrocodone Allergy Nausea Verified 01/22/19 09:58 Home Medications Medication Instructions Recorded Confirmed Last Taken Type No Known Home Medications [No 01/22/19 01/22/19 Unknown History Reported Home Medications] Active Meds: Active Medications Lactated Ringer's (Lactated Ringers) 1,000 mls @ 999 mls/hr IV BOLUS ONE Stop: 01/22/19 11:22 Review of Systems All systems: negative - Vital Signs Vital signs: Vital Signs Pulse BP 93 H 124/81 01/22/19 10:10 01/22/19 10:10 Temp Pulse Resp BP Pulse Ox 93 H 124/81 01/22/19 10:10 01/22/19 10:10 - Physical Exam Breasts: Positive: deferred Cardiovascular: Regular rate Lungs: Positive: Clear to auscultation Abdomen: Positive: normal appearance Genitourinary (Female): Positive: normal external genitalia Uterus: Positive: enlarged Extremities: Positive: normal - Obstetrical FHR: category 1 Uterine Contraction Monitor Mode: External Cervical Dilatation: 4.5 (per nurse) Cervical Effacement Percentage: 80 (per nurse) station: -2 Uterine Contraction Pattern: Regular Uterine Tone Measurement Phase: Contraction Uterine Contraction Intensity: Moderate Results Result Diagrams: 01/22/19 10:30 All other labs normal. Assessment and Plan - Patient Problems (1) 39 weeks gestation of Onset Date: 01/22/19 Current Visit: Yes Status: Acute Plan to address problem: A: IUP @ 39 5/7 weeks inlabor Previous C-sections 4 Insufficient care Anemia effected P: Admit to L&D for repeat Will administer one units of blood prior to (2) Anemia affecting Onset Date: 01/22/19 Current Visit: No Status: Chronic Qualifiers: Trimester: third trimester Qualified Code(s): O99.013 - Anemia complicating , third trimester (3) Insufficient care Onset Date: 01/22/19 Current Visit: No Status: Acute Qualifiers: Trimester: third trimester Qualified Code(s): O09.33 - Supervision of with insufficient care, third trimester (4) Previous section Onset Date: 01/22/19 Current Visit: No Status: Chronic
[2019-01-22 11:00] LABS: Red Cell Distribution Width 20.3 % (13.2-15.2)
[2019-01-22] MEDS ORDERED: ANCEF/STERILE WATER 2 GM/20 ML 2 GM/20 ML SYRINGE IV NR (11:00)
[2019-01-22] MEDS ORDERED: PHENERGAN PR PRN (11:15)
[2019-01-22] MEDS ORDERED: PHENERGAN PO PRN (11:15)
[2019-01-22] MEDS ORDERED: ZOFRAN IV PRN (11:15)
[2019-01-22] MEDS ORDERED: NARCAN 0.4 MG/1 ML IV PRN ×2 (11:15→13:33)
--- NOTE | 2019-01-22 11:15 | Anesthesia Day of Surgery ---
Anesthesia Day of Surgery - Day of Surgery Patient Examined: Yes Patient H&P Reviewed: Yes Patient is NPO: Yes Beta Blockers: No Cardiac Clearance: No Pulmonary Clearance: No Derick's Test: N/A
--- NOTE | 2019-01-22 11:15 | Anesthesia Consultation ---
Anesthesia Consult and Med Hx - Airway Anesthetic Teeth Evaluation: Good ROM Head & Neck: Adequate Mental/Hyoid Distance: Adequate Mallampati Class: Class II Intubation Access Assessment: Good - Pulmonary Exam CTA: Yes - Cardiac Exam Cardiac Exam: RRR - Pre-Operative Health Status ASA Pre-Surgery Classification: ASA2 Proposed Anesthetic Plan: Spinal - Pulmonary Hx Smoking: Yes Hx Asthma: No Hx Respiratory Symptoms: No SOB: No COPD: No Home Oxygen Therapy: No Hx Pneumonia: No Hx Sleep Apnea: No - Cardiovascular System Hx Hypertension: No Hx Coronary Artery Disease: No Hx Heart Attack/AMI: No Hx Angina: No Hx Percutaneous Transluminal Coronary Angioplasty (PTCA): No Hx Cardia Arrhythmia: No Hx Pacemaker: No Hx Internal Defibrillator: No Hx Valvular Heart Disease: No Hx Heart Murmur: No Hx Peripheral Vascular Disease: No - Central Nervous System Hx Neuromuscular Disorder: No Hx Seizures: No CVA: No Hx Back Pain: No Hx Psychiatric Problems: No - Gastrointestinal Hx Ulcer: No Hx Gastroesophageal Reflux Disease: No - Endocrine Hx Renal Disease: No Hx End Stage Renal Disease: No Hx Liver Disease: No Hx Insulin Dependent Diabetes: No Hx Non-Insulin Dependent Diabetes: No Hx Thyroid Disease: No Hx Hypothyroidism: No Hx Hyperthyroidism: No - Hematic Hx Anemia: Yes (NO IRON) Hx Sickle Cell Disease: No - Other Systems Hx Alcohol Use: No Hx Substance Use: No Hx Cancer: No Hx Obesity: No
[2019-01-22] MEDS ORDERED: ASTRAMORPH PF 10MG/10ML ONE (11:20)
[2019-01-22] MEDS ORDERED: SUBLIMAZE ONE (11:20)
[2019-01-22] MEDS ORDERED: NACL 0.9% 250ML 250 ML ONE (11:55)
[2019-01-22] MEDS ORDERED: NACL 0.9% 500 ML 500 ML IV ONE (12:00)
[2019-01-22] MEDS ORDERED: PEPCID IV ONE (12:00)
[2019-01-22] MEDS ORDERED: LACTATED RINGERS 1,000 ML IV SCH (12:00)
[2019-01-22] MEDS ORDERED: REGLAN IV ONE (12:00)
[2019-01-22] MEDS ORDERED: PITOCin/NS 20 UNIT/1000ML DRIP 20 UNITS/1,000 ML BAG IV SCH ×2 (12:00→14:00)
[2019-01-22] MEDS ORDERED: fentaNYL-BUPIV 2 MCG/ML-0.125% 200 MCG/100 ML BAG EPIDURAL SCH (12:00)
[2019-01-22] MEDS ORDERED: BICITRA PO ONE (12:00)
[2019-01-22] MEDS ORDERED: SODIUM CHLORIDE FLUSH SYRINGE 10 ML IV NR ×2 (12:00→14:00)
[2019-01-22 12:23] LABS: Bilirubin,Urine NEG (Negative); Blood,Urine LG (Negative); Color,Urine Yellow (Yellow); Mucus,Urine FEW /HPF
[2019-01-22] MEDS ORDERED: ANCEF/STERILE WATER 2 GM/20 ML IV ONE (12:50)
[2019-01-22] MEDS ORDERED: WATER FOR IRRIG STERILE IR ONE (12:55)
[2019-01-22] MEDS ORDERED: NACL 0.9% IR ONE (12:55)
[2019-01-22] MEDS ORDERED: TYLENOL PO ONE (13:00)
[2019-01-22] MEDS ORDERED: BENADRYL IV ONE (13:00)
[2019-01-22] MEDS ORDERED: TORADOL ONE (13:22)
[2019-01-22] MEDS ORDERED: TYLENOL PO PRN (13:33)
[2019-01-22] MEDS ORDERED: SENOKOT PO PRN (13:33)
[2019-01-22] MEDS ORDERED: TUCKS PAD TP PRN (13:33)
[2019-01-22] MEDS ORDERED: LANSINOH TP PRN (13:33)
[2019-01-22] MEDS ORDERED: MYLICON PO PRN (13:33)
[2019-01-22] MEDS ORDERED: NORCO 5/325 PO PRN (13:33)
[2019-01-22] MEDS ORDERED: MILK OF MAGNESIA PO PRN (13:33)
--- NOTE | 2019-01-22 13:52 | Post Anesthesia Evaluation ---
- Post Anesthesia Evaluation Patient Participated: Yes Airway Patent: Yes Stable Respiratory Function: Yes Nausea/Vomiting: No Temp > 96.8F: Yes Pain Manageable: Yes Adequeate Hydration: Yes Anesthesia Complications: No Block Receding Appropriately: No Patient on Ventilator: No
[2019-01-22] MEDS ORDERED: ANCEF/NS 1 GM/50 ML 1 GM/50 ML BAG IV SCH (14:00)
[2019-01-22] MEDS ORDERED: D5LR 1,000 ML IV SCH (14:00)
--- NOTE | 2019-01-22 14:13 | Operative Report ---
Operative Report Operative Report: Date of procedure: 01/22/2019 Pre-operative diagnosis: 1. Intrauterine at 39-5/7 weeks in labor 2. Previous 4 3. Insufficient care 4. Anemia affecting Post-operative diagnosis: Same Procedure name(s): Repeat low transverse section Surgeon: Chandan Schwarz MD Call Center Manager: None Anesthesia: Spinal anesthesia by Dr. Navarro EBL: 600 mls Findings: A 2665 g male Apgars 8 at 1 minute and 9 at 5 minutes. Clear amniotic fluid. Normal uterus. Normal tubes and ovaries bilaterally. Procedure: After the patient was prepped and draped in usual sterile fashion, and after satisfactory level of epidural anesthesia was obtained, the skin knife was used to make a transverse skin incision through the previous skin scars. The incision was excised down to layer of the fascia, which was nicked in the midline and extended laterally using the Bovie cautery. The rectus muscles were dissected off the rectus fascia both superiorly and inferiorly. The rectus bellies in the midline, and the peritoneum was entered under direct visualization. The peritoneal incision was extended superiorly and inferiorly. A bladder flap was created and the bladder blade was then placed. The uterus was scored in a curvilinear linear fashion, entered in the midline revealing clear amniotic fluid. The infant's head was delivered onto the surgical field, and the oropharynx and nasopharynx were bulb suctioned. The rest of the infant's body was delivered, cord was doubly clamped and cut and the was handed to the waiting respiratory team. Cord blood is then obtained. The placenta was manually removed from the uterus, and the uterus removed from its normal anatomical position. After gentle uterine lavage, the incision was inspected and found to be without extensions. It was then closed in 2 layers using 0 Vicryl suture in a running interlocking fashion, the second layer imbricating the first. After good hemostasis was achieved, copious amounts or irrigation was performed, and the gutters were suctioned free of blood and blood clots. The Tisseel sealant was sprayed across the uterine incision. The uterus was then returned to its normal anatomical position, and after excellent hemostasis assured, the peritoneum was re-approximated using 3-0 Vicryl suture in a running interlocking fashion, and then the rectus muscles were re- approximated using 3-0 Vicryl suture in a [id number] configuration. The fascia was then re-approximated using 0 Vicryl suture in running interlocking fashion. The subcutaneous layer was made hemostatic using Bovie cautery, the Tisseel sealant was sprayed across the fascial incision and the skin edges re- approximated using 4-0 Vicryl suture in a sub-cuticular fashion. Patient tolerated the procedure well was transported to recovery in stable condition.
[2019-01-22] MEDS: TORADOL IV PRN (17:07)
[2019-01-22 18:00] LABS: Benzodiazepines Screen,Urine PRESUMPTIVE NEGATIVE; Cocaine Screen,Urine PRESUMPTIVE NEGATIVE; Methadone Screen,Urine PRESUMPTIVE NEGATIVE; Opiate Screen,Urine PRESUMPTIVE NEGATIVE
[2019-01-22 18:16] LABS: Amphetamine Screen,Urine PRESUMPTIVE POSITIVE; Cannabinoid Screen,Urine PRESUMPTIVE POSITIVE
[2019-01-22] MEDS: PERCOCET 5/325 PO PRN (22:00)
[2019-01-23] MEDS: TORADOL IV PRN (00:31)
[2019-01-23 01:32] LABS: Hematocrit 23.1 % (30.3-42.9); Hemoglobin 7.2 gm/dl (10.1-14.3)
[2019-01-23] MEDS ORDERED: ANCEF/NS 1 GM/50 ML 1 GM/50 ML BAG IV SCH (04:00)
[2019-01-23] MEDS: IBUPROFEN PO PRN ×3 (05:37→23:04)
[2019-01-23] MEDS: PERCOCET 5/325 PO PRN ×3 (05:38→19:47)
--- NOTE | 2019-01-23 09:34 | Progress Note ---
Assessment and Plan - Patient Problems (1) 39 weeks gestation of Onset Date: 01/22/19 Current Visit: Yes Status: Resolved (2) Anemia affecting Onset Date: 01/22/19 Current Visit: No Status: Chronic Qualifiers: Trimester: third trimester Qualified Code(s): O99.013 - Anemia complicating , third trimester (3) Insufficient care Onset Date: 01/22/19 Current Visit: No Status: Resolved Qualifiers: Trimester: third trimester Qualified Code(s): O09.33 - Supervision of with insufficient care, third trimester (4) Previous section Onset Date: 01/22/19 Current Visit: No Status: Resolved (5) Status post Onset Date: 01/23/19 Current Visit: No Status: Resolved Plan to address problem: A: S/P Repeat C Section - POD #1 Doing well Asymptomatic anemia - stable Insufficient care P: Continue RPOC Anticipate discharge in 24-48hrs Subjective - Subjective Date of service: 01/23/19 Principal diagnosis: s/p Repeat C Section - POD #1 Interval history: Pt is feeling well without complaints, bleeding improved. She is tolerating a liquid diet without nausea or vomiting. Patient reports: appetite normal, voiding normally, pain well controlled, flatus, ambulating normally, no dizzy ambulation, no nauseated : doing well, bottle feeding Objective - Vital Signs Latest vital signs: Vital Signs Temp Pulse Resp BP BP Pulse Ox 01/23/19 06:37 18 01/23/19 05:38 18 01/23/19 05:37 18 01/23/19 05:20 98.3 F 76 18 126/75 100 01/23/19 01:34 98.3 F 77 20 112/58 98 01/23/19 01:01 18 01/23/19 00:31 18 01/22/19 23:00 18 01/22/19 22:00 18 01/22/19 21:00 98.8 F 84 18 126/64 96 01/22/19 17:07 18 01/22/19 16:37 97.4 F L 59 L 132/71 100 01/22/19 14:46 98.2 F 54 L 14 118/53 99 01/22/19 14:31 54 L 16 103/71 100 01/22/19 14:16 53 L 13 118/63 98 01/22/19 14:11 61 16 124/48 99 01/22/19 14:06 61 15 115/61 100 01/22/19 14:01 62 14 115/54 100 01/22/19 13:56 61 16 115/60 100 01/22/19 13:51 66 15 110/52 99 01/22/19 13:46 97.7 F 66 16 115/80 100 01/22/19 12:30 98.0 F 78 20 01/22/19 12:26 71 134/75 01/22/19 12:25 98.5 F 71 20 134/75 01/22/19 12:18 98.5 F 68 20 129/71 01/22/19 12:16 68 129/71 01/22/19 11:23 98.3 F 93 H 20 01/22/19 10:10 93 H 124/81 Intake and Output 01/22/19 01/23/19 01/23/19 22:59 06:59 14:59 Intake Total 120 480 Output Total 280 1600 Balance -160 -1120 Intake: Intake, Free Water 120 480 Output: Urine 280 1600 Indwelling Catheter 280 1000 Void 600 Other: Total, Output Amount 200 600 # Voids Indwelling Catheter 1 - Exam Breasts: Present: deferred Abdomen: Present: normal appearance, soft Uterus: Present: normal, firm, fundal height below umbilicus Extremities: Present: normal Incision: Present: normal, dry, intact, dressed - Labs Labs: Abnormal lab results 01/22/19 01/22/19 01/23/19 Range/Units 10:30 10:30 00:56 RBC 3.41 L (3.65-5.03) M/mm3 Hgb 7.8 L 7.2 L (10.1-14.3) gm/dl Hct 24.6 L 23.1 L (30.3-42.9) % MCV 72 L (79-97) fl MCH 23 L (28-32) pg RDW 20.3 H (13.2-15.2) % Plt Count 659 H (140-440) K/mm3 [place] % (Auto) 10.3 H (0.0-7.3) % [place] # 0.9 H (0.0-0.8) K/mm3 Seg Neutrophils % 71.6 H (40.0-70.0) % Crossmatch See Detail Laboratory Tests 01/21/19 01/22/19 01/22/19 17:33 10:30 10:30 WBC 9.1 RBC 3.41 L Hgb 7.8 L Hct 24.6 L MCV 72 L MCH 23 L MCHC 32 RDW 20.3 H Plt Count 659 H Lymph % (Auto) 17.1 [place] % (Auto) 10.3 H Eos % (Auto) 0.2 Baso % (Auto) 0.8 Lymph # 1.6 [place] # 0.9 H Eos # 0.0 Baso # 0.1 Seg Neutrophils % 71.6 H Seg Neutrophils # 6.5 Albumin Urine Color Urine Turbidity Urine pH Ur Specific [place] Urine Protein Urine Glucose (UA) Urine Ketones Urine Blood Urine Nitrite Urine Bilirubin Urine Urobilinogen Ur Leukocyte Esterase Urine WBC (Auto) Urine RBC (Auto) U Epithel Cells (Auto) Urine Mucus Urine Opiates Screen Presumptive negative Urine Methadone Screen Presumptive negative Ur Barbiturates Screen Presumptive negative Ur Phencyclidine Scrn Presumptive negative Ur Amphetamines Screen Presumptive positive U Benzodiazepines Scrn Presumptive negative Urine Cocaine Screen Presumptive negative U Marijuana (THC) Screen Presumptive positive Drugs of Abuse Note Disclamer RPR Hep Bs Antigen HIV 1&2 Antibody Rapid Non react HIV P24 Antigen Non react Rubella IgG Antibody Immune Blood Type Antibody Screen Screen Crossmatch 01/22/19 01/22/19 01/22/19 10:30 10:30 10:30 WBC RBC Hgb Hct MCV MCH MCHC RDW Plt Count Lymph % (Auto) [place] % (Auto) Eos % (Auto) Baso % (Auto) Lymph # [place] # Eos # Baso # Seg Neutrophils % Seg Neutrophils # Albumin Urine Color Urine Turbidity Urine pH Ur Specific [place] Urine Protein Urine Glucose (UA) Urine Ketones Urine Blood Urine Nitrite Urine Bilirubin Urine Urobilinogen Ur Leukocyte Esterase Urine WBC (Auto) Urine RBC (Auto) U Epithel Cells (Auto) Urine Mucus Urine Opiates Screen Urine Methadone Screen Ur Barbiturates Screen Ur Phencyclidine Scrn Ur Amphetamines Screen U Benzodiazepines Scrn Urine Cocaine Screen U Marijuana (THC) Screen Drugs of Abuse Note RPR Nonreactive Hep Bs Antigen Non-reactive HIV 1&2 Antibody Rapid HIV P24 Antigen Rubella IgG Antibody Blood Type A NEGATIVE Antibody Screen Negative Screen Crossmatch See Detail 01/22/19 01/22/1901/23/19 10:30 11:55 00:56 WBC RBC Hgb 7.2 L Hct 23.1 L MCV MCH MCHC RDW Plt Count Lymph % (Auto) [place] % (Auto) Eos % (Auto) Baso % (Auto) Lymph # [place] # Eos # Baso # Seg Neutrophils % Seg Neutrophils # Albumin 4.1 Urine Color Yellow Urine Turbidity Clear Urine pH 6.0 Ur Specific [place] 1.024 Urine Protein 30 mg/dl Urine Glucose (UA) Neg Urine Ketones 20 Urine Blood Lg Urine Nitrite Neg Urine Bilirubin Neg Urine Urobilinogen 4.0 Ur Leukocyte Esterase Neg Urine WBC (Auto) 2.0 Urine RBC (Auto) 1.0 U Epithel Cells (Auto) 4.0 Urine Mucus Few Urine Opiates Screen Urine Methadone Screen Ur Barbiturates Screen Ur Phencyclidine Scrn Ur Amphetamines Screen U Benzodiazepines Scrn Urine Cocaine Screen U Marijuana (THC) Screen Drugs of Abuse Note RPR Hep Bs Antigen HIV 1&2 Antibody Rapid HIV P24 Antigen Rubella IgG Antibody Blood Type Antibody Screen Screen Crossmatch 01/23/19 01:20 WBC RBC Hgb Hct MCV MCH MCHC RDW Plt Count Lymph % (Auto) [place] % (Auto) Eos % (Auto) Baso % (Auto) Lymph # [place] # Eos # Baso # Seg Neutrophils % Seg Neutrophils # Albumin Urine Color Urine Turbidity Urine pH Ur Specific [place] Urine Protein Urine Glucose (UA) Urine Ketones Urine Blood Urine Nitrite Urine Bilirubin Urine Urobilinogen Ur Leukocyte Esterase Urine WBC (Auto) Urine RBC (Auto) U Epithel Cells (Auto) Urine Mucus Urine Opiates Screen Urine Methadone Screen Ur Barbiturates Screen Ur Phencyclidine Scrn Ur Amphetamines Screen U Benzodiazepines Scrn Urine Cocaine Screen U Marijuana (THC) Screen Drugs of Abuse Note RPR Hep Bs Antigen HIV 1&2 Antibody Rapid HIV P24 Antigen Rubella IgG Antibody Blood Type A NEGATIVE Antibody Screen Negative Screen Negative Crossmatch
[2019-01-23] MEDS: PRENATAL VITAMIN PO SCH (13:00)
[2019-01-23] MEDS: FEOSOL PO SCH ×2 (13:00→13:10)
[2019-01-23] MEDS ORDERED: BOOSTRIX IM ONE (13:35)
[2019-01-23] MEDS ORDERED: M-M-R II VACCINE SUB-Q ONE (13:35)
[2019-01-23] MEDS: MUCINEX ER PO SCH (23:04)
[2019-01-24] MEDS: IBUPROFEN PO PRN ×2 (08:17→14:36)
[2019-01-24] MEDS: PERCOCET 5/325 PO PRN ×2 (08:18→14:36)
--- NOTE | 2019-01-24 08:56 | Progress Note ---
Assessment and Plan - Patient Problems (1) 39 weeks gestation of Onset Date: 01/22/19 Current Visit: Yes Status: Resolved (2) Anemia affecting Onset Date: 01/22/19 Current Visit: No Status: Chronic Qualifiers: Trimester: third trimester Qualified Code(s): O99.013 - Anemia complicating , third trimester (3) Insufficient care Onset Date: 01/22/19 Current Visit: No Status: Resolved Qualifiers: Trimester: third trimester Qualified Code(s): O09.33 - Supervision of with insufficient care, third trimester (4) Previous section Onset Date: 01/22/19 Current Visit: No Status: Resolved (5) Status post Onset Date: 01/23/19 Current Visit: No Status: Resolved Plan to address problem: A: S/P Repeat C Section - POD #2 Doing well Asymptomatic anemia - stable Insufficient care +UDS P: May go home today. Subjective - Subjective Date of service: 01/24/19 Principal diagnosis: s/p Repeat C Section - POD #2 Interval history: Pt is feeling well without complaints, and wants to go home. She is tolerating a reg diet without nausea or vomiting, ambulating and voiding without difficulty. Patient reports: appetite normal, voiding normally, pain well controlled, flatus, ambulating normally, no dizzy ambulation, no nauseated : doing well, bottle feeding Objective - Vital Signs Latest vital signs: Vital Signs Temp Pulse Resp BP BP Pulse Ox 01/24/19 07:22 98.4 F 74 18 136/82 01/24/19 01:00 98.4 F 18 01/24/19 00:20 86 134/78 98 01/23/19 23:04 18 01/23/19 19:47 18 01/23/19 15:30 98.5 F 01/23/19 15:29 75 18 142/86 99 01/23/19 13:30 98 F 74 18 131/74 01/23/19 13:03 20 01/23/19 13:02 20 Intake and Output 01/23/19 01/24/19 01/24/19 22:59 06:59 14:59 Intake Total 480 Balance 480 Intake: Oral 480 Other: Total, Intake Amount 480 - Exam Breasts: Present: deferred Abdomen: Present: normal appearance, soft Uterus: Present: normal, firm, fundal height below umbilicus Extremities: Present: normal Incision: Present: normal, dry, intact
--- NOTE | 2019-01-24 09:08 | Discharge Summary ---
Providers - Providers Date of Admission: 01/22/19 09:47 Date of discharge: 01/24/19 Attending physician: MERE WILEY 01/22/19 22:52 Consult to Case Management [CONS] Routine Services Needed at Discharge: Insurance Plan Specialist Notified:: no Additional Physician Instructions: repeat . no pnc. +uds. Primary care physician: MERE WILEY Hospitalization Reason for admission: active labor, section, IUP at term, other (Insufficient care; Severe anemia) Delivery: Procedure: section, repeat low transverse Episiotomy: none Incision: normal, dry, intact Other procedures: none complications: none Discharge diagnosis: IUP at term delivered baby: male Hospital course: Pt is a 28yo BF EDC 01/24/19; EGA 39 5/7 weeks who presented to L&D complaining of RUC's q 3-4 mins. She had 4 previous C-sections and no care during this . She was dilated 4 cm, so she underwent an uncomplicated repeat . Post operative course was unremarkable except for a +UDS (+ Amphetamines and + marijuana) . By POD #2 she was tolerating a reg diet without nausea or vomiting, ambulating and voiding without difficulty. She was therefore discharged to home on POD #2 in stable condition. Condition at discharge: Good Disposition: DC-01 TO HOME OR SELFCARE - Discharge Diagnoses (1) 39 weeks gestation of Status: Resolved (2) Anemia affecting Status: Chronic Qualifiers: Trimester: third trimester Qualified Code(s): O99.013 - Anemia complicating , third trimester (3) Insufficient care Status: Resolved Qualifiers: Trimester: third trimester Qualified Code(s): O09.33 - Supervision of with insufficient care, third trimester (4) Previous section Status: Resolved (5) Status post Status: Resolved Plan - Discharge Medications Prescriptions: Ferrous Sulfate [Feosol 325 MG tab] 325 mg PO BID #60 tablet Ibuprofen [Motrin 800 MG tab] 800 mg PO Q6H PRN #30 tablet PRN Reason: Pain, Mild (1-3) guaiFENesin ER [Mucinex ER] 600 mg PO BID #10 tablet HYDROcodone/APAP 5-325 [[place] 5-325 mg TAB] 1 each PO Q6HR PRN #30 tablet PRN Reason: Pain, Moderate (4-6) Vit-Fe Fumar-FA [ Vitamin] 1 each PO QDAY #30 tablet - Provider Discharge Summary Activity: routine, no sex for 6 weeks, no heavy lifting 4 weeks, no strenuous exercise Diet: routine Instructions: routine Additional instructions: [] Smoking cessation referral if applicable(refer to patient education folder for contact #) [] Refer to [facility] Booklet Call your doctor immediately for: * Fever > 100.5 * Heavy vaginal bleeding ( >1 pad per hour) * Severe persistent headache * Shortness of breath * Reddened, hot, painful area to leg or breast * Drainage or odor from incision. * Keep incision clean and dry at all times and follow doctor's instructions regarding bathing/showering - Follow up plan Follow up: MERE WILEY MD [Primary Care Provider] - 14 Days
[2019-01-24] MEDS: FEOSOL PO SCH (10:56)
[2019-01-24] MEDS: PRENATAL VITAMIN PO SCH (10:56)
[2019-01-24] MEDS: MUCINEX ER PO SCH (10:56)
[2019-01-24 18:34] VITALS: BP 132/83
== END 2019-01-24 19:45 | disposition home or self-care (01) | DRG 765 ==
LOC: TRG 09:46 → APU 09:47 → TRG 12:45 → OB 15:38
PROVIDERS: ADMIT Obstetrics & Gynecology; ATTEND Obstetrics & Gynecology
PROC: 10D00Z1 Extraction of Products of Conception, Low, Open Approach (ICD-10-PCS; principal; 2019-01-22)
PROC: 30233N1 Transfusion of Nonautologous Red Blood Cells into Peripheral Vein, Percutaneous Approach (ICD-10-PCS; 2019-01-22)
PROC: 3E0234Z Introduction of Serum, Toxoid and Vaccine into Muscle, Percutaneous Approach (ICD-10-PCS; 2019-01-23)
PROC: 3E0334Z Introduction of Serum, Toxoid and Vaccine into Peripheral Vein, Percutaneous Approach (ICD-10-PCS; 2019-01-23)
DX: O34.211 Maternal care for low transverse scar from previous cesarean delivery (principal); O99.324 Drug use complicating childbirth; O99.02 Anemia complicating childbirth; D64.9 Anemia, unspecified; F12.90 Cannabis use, unspecified, uncomplicated; F15.90 Other stimulant use, unspecified, uncomplicated; Z3A.39 39 weeks gestation of pregnancy; Z37.0 Single live birth; Z23 Encounter for immunization; Z88.5 Allergy status to narcotic agent
CPT/HCPCS: 36415; 59025; 80307; 81001; 82040; 85014; 85018; 85025; 85461; 86592; 86706; 86762; 86850; 86900; 86901; 86920; 87806; G0378; C9250; J0690; J1200; J1885; J2274; J2405; J2590; J2765; J2790; J3010; J7050; J7120; J7121; P9016

== ENCOUNTER 2019-09-30 17:13 | Emergency (ER) | payer MEDICAID ==
--- NOTE | 2019-09-30 18:37 | Emergency Department Report ---
[facility] Chief Complaint: Eye Problems Stated Complaint: PINK EYE Time Seen by Provider: 09/30/19 18:32 Duration: 2 Days Side: Left Severity: severe Symptoms: Yes Eye Itching (left), Yes Eye Redness (left), Yes Eye Pain (left), Yes Blurred Vision, No Mucous Drainage, No Purulent Drainage, No Preceding URI, No H/O Allergic Rhinitis, No Contact Lens Use, No Trauma, No Fever, No Headache Other History: This is a 29-year-old female that presents to the ED with left eye crusting and itching with redness for 2 days. She wear glasses. Denies using contacts. States applied OTC eye drops with worsening discharge and redness. Patient denies any eye pain or foreign body sensation. Patient denies any other symptoms. Denies any blurry vision or visual changes. Denies any fever, chills, headache, nausea, vomiting, chest pain or SOB. Denies any other complaints. ED Review of Systems ROS: Stated complaint: PINK EYE Other details as noted in HPI Constitutional: denies: chills, fever Eyes: eye pain (left), eye discharge (left), vision change (blurry, left eye) ENT: denies: ear pain, throat pain Respiratory: denies: cough, shortness of breath, wheezing Cardiovascular: denies: chest pain, palpitations Gastrointestinal: denies: abdominal pain, nausea, diarrhea Musculoskeletal: denies: back pain, joint swelling, arthralgia Skin: denies: rash, lesions Neurological: denies: headache, weakness, paresthesias Psychiatric: denies: anxiety, depression ED Past Medical Hx - Past Medical History Previous Medical History?: No Hx Hypertension: No Hx Heart Attack/AMI: No Hx Congestive Heart Failure: No Hx Diabetes: No Hx Deep Vein Thrombosis: No Hx Pulmonary Embolism: No Hx Liver Disease: No Hx Renal Disease: No Hx Sickle Cell Disease: No Hx Headaches / Migraines: No Hx Seizures: No Hx Asthma: No Hx COPD: No Hx Tuberculosis: No Hx HIV: No - Surgical History Past Surgical History?: Yes Hx Pacemaker: No Hx Internal Defibrillator: No Additional Surgical History: C Section - Social History Smoking Status: Never Smoker - Medications Home Medications: Home Medications Medication Instructions Recorded Confirmed Last Taken Type Ferrous Sulfate [Feosol 325 MG tab] 325 mg PO BID #60 tablet 01/24/19 Unknown Rx HYDROcodone/APAP 5-325 [[place] 1 each PO Q6HR PRN #30 tablet 01/24/19 Unknown Rx 5-325 mg TAB] Ibuprofen [Motrin 800 MG tab] 800 mg PO Q6H PRN #30 tablet 01/24/19 Unknown Rx Vit-Fe Fumar-FA [ 1 each PO QDAY #30 tablet 01/24/19 Unknown Rx Vitamin] guaiFENesin ER [Mucinex ER] 600 mg PO BID #10 tablet 01/24/19 Unknown Rx Erythromycin [Erythromycin Ophth 10 applic OS QID 7 Days #1 tube 09/30/19 Unknown Rx Oint] [facility] Exam - Exam General: Vital signs noted. No distress. Alert and acting appropriately. Eye Exam: Left Injection, Left Purulent Discharge, Both EOMI, Neither Chemosis, Neither Abnormal Pupil, Neither Eye Foreign Body, Neither Lid Foreign Body, Neither Mucous Discharge, Neither Fluorescein Uptake, Neither Fluorescein Uptake (slit lamp), Neither Cell/Flare (slit lamp), Neither Corneal Edema, Neither Photophobia HEENT: No Nasal Congestion, No Pharyngeal Erythema Remainder of HEENT: Normal Lungs: Yes Clear Lung Sounds, Yes Good Air Exchange, No Wheezes, No Stridor, No Cough, No Nasal Flaring, No Retractions, No Use of Accessory Muscles ED Medical Decision Making - Medical Decision Making Patient is stable was examined by me. There is thick purulent discharge with crusting to left eye, left conjunctiva red, PEERL, and no chemosis. Bacterial conjunctivitis. Start erythromycin ophthalmic ointment. Instructed to use cool compress for comfort. Follow-up with a primary care doctor in 3-5 days or if symptoms worsen and continue return to emergency room as soon as possible. At time of discharge, the patient does not seem toxic or ill in appearance. No acute signs of distress noted. Patient agrees to discharge treatment plan of care. No further questions noted by the patient. - Differential Diagnosis blephartitis, dry eye, foreign object Critical care attestation.: If time is entered above; I have spent that time in minutes in the direct care of this critically ill patient, excluding procedure time. ED Disposition Clinical Impression: Conjunctivitis Qualifiers: Conjunctivitis type: acute Acute conjunctivitis type: bacterial Laterality: left Qualified Code(s): H10.32 - Unspecified acute conjunctivitis, left eye Disposition: DC-01 TO HOME OR SELFCARE Is pt being admited?: No Condition: Stable Instructions: Conjunctivitis (ED) Additional Instructions: Apply a cool compress to left eye for comfort. Apply antibiotic ointment to left eye every 6 hours for 7 days. Follow up with your primary care doctor or ophthalmology. Prescriptions: Erythromycin [Erythromycin Ophth Oint] 10 applic OS QID 7 Days #1 tube Referrals: [facility] [Outside] - 3-5 Days [facility] [Outside] - 3-5 Days [facility] [Outside] - 3-5 Days Time of Disposition: 19:16
[2019-09-30 19:39] VITALS: BP 146/95
== END 2019-09-30 19:39 | disposition home or self-care (01) ==
LOC: ED 17:13
DX: H10.32 Unspecified acute conjunctivitis, left eye (principal)
CPT/HCPCS: 99282

== ENCOUNTER 2020-03-29 23:11 | Emergency (ER) | payer MEDICAID ==
[2020-03-29 23:32] VITALS: BP 117/81
[2020-03-30 00:51] LABS: Bilirubin,Urine NEG (Negative); Blood,Urine NEG (Negative); Color,Urine Yellow (Yellow); Mucus,Urine FEW /HPF; Protein,Urine <15 mg/dL mg/dL (Negative)
[2020-03-30 00:58] LABS: HCG Qualitative,Urine Positive (Negative)
--- NOTE | 2020-03-30 01:27 | Emergency Department Report ---
ED Female HPI - General Chief complaint: Urogenital-Female Stated complaint: VAGINAL DISCOMFORT WHILE URINATING Time Seen by Provider: 03/30/20 01:08 Source: patient Mode of arrival: Ambulatory Limitations: No Limitations - History of Present Illness Initial comments: 29-year-old -[place] female who presents to the emergency room for pain with urination and lower abdominal pain. Patient reports that she is 6-1/2 months has not received any care. Patient reports vaginal discomfort. Patient reports pain with urination. Patient states that the after she takes a shower she starts having burning sensation. MD Complaint: dysuria Onset/Timin -: week(s) Are you Now?: Yes Last Menstrual Period: 09/16/19 EDC: 06/22/20 - Related Data Previous Rx's Medication Instructions Recorded Last Taken Type Ferrous Sulfate [Feosol 325 MG tab] 325 mg PO BID #60 tablet 01/24/19 Unknown Rx HYDROcodone/APAP 5-325 [[place] 1 each PO Q6HR PRN #30 tablet 01/24/19 Unknown Rx 5-325 mg TAB] Ibuprofen [Motrin 800 MG tab] 800 mg PO Q6H PRN #30 tablet 01/24/19 Unknown Rx Vit-Fe Fumar-FA [ 1 each PO QDAY #30 tablet 01/24/19 Unknown Rx Vitamin] guaiFENesin ER [Mucinex ER] 600 mg PO BID #10 tablet 01/24/19 Unknown Rx Erythromycin [Erythromycin Ophth 10 applic OS QID 7 Days #1 tube 09/30/19 Un known Rx Oint] Allergies Allergy/AdvReac Type Severity Reaction Status Date / Time hydrocodone Allergy Nausea Verified 01/22/19 09:58 ED Review of Systems ROS: Stated complaint: VAGINAL DISCOMFORT WHILE URINATING Other details as noted in HPI Comment: All other systems reviewed and negative ED Past Medical Hx - Past Medical History Hx Hypertension: No Hx Heart Attack/AMI: No Hx Congestive Heart Failure: No Hx Diabetes: No Hx Deep Vein Thrombosis: No Hx Pulmonary Embolism: No Hx Liver Disease: No Hx Renal Disease: No Hx Sickle Cell Disease: No Hx Headaches / Migraines: No Hx Seizures: No Hx Asthma: No Hx COPD: No Hx Tuberculosis: No Hx HIV: No - Surgical History Hx Pacemaker: No Hx Internal Defibrillator: No Additional Surgical History: C Section - Social History Smoking Status: Never Smoker Substance Use Type: None - Medications Home Medications: Home Medications Medication Instructions Recorded Confirmed Last Taken Type Ferrous Sulfate [Feosol 325 MG tab] 325 mg PO BID #60 tablet 01/24/19 Unknown Rx HYDROcodone/APAP 5-325 [[place] 1 each PO Q6HR PRN #30 tablet 01/24/19 Unknown Rx 5-325 mg TAB] Ibuprofen [Motrin 800 MG tab] 800 mg PO Q6H PRN #30 tablet 01/24/19 Unknown Rx Vit-Fe Fumar-FA [ 1 each PO QDAY #30 tablet 01/24/19 Unknown Rx Vitamin] guaiFENesin ER [Mucinex ER] 600 mg PO BID #10 tablet 01/24/19 Unknown Rx Erythromycin [Erythromycin Ophth 10 applic OS QID 7 Days #1 tube 09/30/19 Unknown Rx Oint] ED Physical Exam - General Limitations: No Limitations General appearance: alert, in no apparent distress - Head Head exam: Present: atraumatic, normocephalic - ENT ENT exam: Present: mucous membranes moist - Back Exam Back exam: Present: normal inspection, full ROM - Neurological Exam Neurological exam: Present: alert, oriented X3, normal gait - Psychiatric Psychiatric exam: Present: normal affect, normal mood - Skin Skin exam: Present: warm, dry, intact, normal color. Absent: rash ED Course Vital Signs 03/29/20 23:31 Temperature 99.2 F Pulse Rate 84 Respiratory 16 Rate Blood Pressure 117/81 O2 Sat by Pulse 97 Oximetry ED Medical Decision Making - Medical Decision Making 29-year-old -[place]namese female who presents to the emergency room for pain with urination and lower abdominal pain. Patient reports that she is 6-1/2 months has not received any care. Patient reports vaginal discomfort. Patient reports pain with urination. Patient states that the after she takes a shower she starts having burning sensation. Patient will be sent over to L&D for evaluation. Urinalysis is negative. Critical care attestation.: If time is entered above; I have spent that time in minutes in the direct care of this critically ill patient, excluding procedure time. ED Disposition Clinical Impression: Vaginal pain Disposition: DC-01 TO HOME OR SELFCARE Is pt being admited?: No Does the pt Need Aspirin: No Condition: Stable Additional Instructions: Urinalysis is negative. Will send over to labor and delivery for evaluation. Referrals: PRIMARY CARE, [Primary Care Provider] - 3-5 Days
== END 2020-03-30 01:40 | disposition home or self-care (01) ==
LOC: ED 23:11
DX: R10.2 Pelvic and perineal pain (principal); R30.0 Dysuria; N89.8 Other specified noninflammatory disorders of vagina; Z79.899 Other long term (current) drug therapy; Z88.6 Allergy status to analgesic agent
CPT/HCPCS: 81001; 81025; 99283

== ENCOUNTER 2020-05-14 12:37 | Outpatient (CLI) | payer MEDICAID ==
[2020-05-14] MEDS ORDERED: LACTATED RINGERS 1,000 ML IV SCH (13:00)
[2020-05-14 13:28] VITALS: BP 119/83
[2020-05-14 13:29] LABS: Basophils % (Auto) 0.4 % (0.0-1.8); Eosinophils % (Auto) 0.5 % (0.0-4.3); Hemoglobin 8.9 gm/dl (10.1-14.3); Lymphocytes # (Auto) 2.1 K/mm3 (1.2-5.4); Lymphocytes % (Auto) 26.4 % (13.4-35.0); Mean Corpuscular HGB Conc 32 % (30-34); Mean Corpuscular Volume 78 fl (79-97); Monocytes # (Auto) 0.7 K/mm3 (0.0-0.8); Monocytes % (Auto) 8.9 % (0.0-7.3); Platelet Count 406 K/mm3 (140-440); Red Blood Count 3.61 M/mm3 (3.65-5.03); Red Cell Distribution Width 18.3 % (13.2-15.2)
[2020-05-14 13:32] LABS: Bilirubin,Urine NEG (Negative); Blood,Urine NEG (Negative); Color,Urine Yellow (Yellow); Mucus,Urine FEW /HPF; Protein,Urine <15 mg/dL mg/dL (Negative)
[2020-05-14 14:23] LABS: Cannabinoid Screen,Urine PRESUMPTIVE POSITIVE; Cocaine Screen,Urine PRESUMPTIVE POSITIVE
[2020-05-14 14:24] LABS: Amphetamine Screen,Urine PRESUMPTIVE NEGATIVE; Benzodiazepines Screen,Urine PRESUMPTIVE NEGATIVE; Methadone Screen,Urine PRESUMPTIVE NEGATIVE; Opiate Screen,Urine PRESUMPTIVE NEGATIVE
== END 2020-05-14 15:25 | disposition home or self-care (01) ==
LOC: APU 12:37 → TRG 12:37
PROVIDERS: ATTEND Obstetrics & Gynecology
DX: O26.893 Other specified pregnancy related conditions, third trimester (principal); R10.30 Lower abdominal pain, unspecified; Z3A.34 34 weeks gestation of pregnancy
CPT/HCPCS: 36415; 59025; 80307; 81001; 85025; 96360; 96361; J7120

== ENCOUNTER 2021-07-10 09:49 | Inpatient (IN) | payer MEDICAID ==
[2021-07-10] MEDS ORDERED: LACTATED RINGERS 2,000 ML ONE (10:55)
[2021-07-10] MEDS ORDERED: ceFAZolin/Water 2 GM/20 ML 2 GM/20 ML SYRINGE IV NR (11:00)
[2021-07-10] MEDS ORDERED: METOCLOPRAMIDE 10 MG/2 ML INJ IV SCH (11:00)
[2021-07-10] MEDS ORDERED: BICITRA ORAL LIQD 30ML PO SCH (11:00)
[2021-07-10 11:17] LABS: Basophils % (Auto) 0.5 % (0.0-1.8); Eosinophils % (Auto) 0.2 % (0.0-4.3); Hematocrit 29.6 % (30.3-42.9); Hemoglobin 9.6 gm/dl (10.1-14.3); Lymphocytes # (Auto) 1.8 K/mm3 (1.2-5.4); Lymphocytes % (Auto) 19.1 % (13.4-35.0); Mean Corpuscular HGB Conc 32 % (30-34); Mean Corpuscular Volume 79 fl (79-97); Monocytes # (Auto) 0.8 K/mm3 (0.0-0.8); Monocytes % (Auto) 8.2 % (0.0-7.3); Platelet Count 409 K/mm3 (140-440); Red Blood Count 3.74 M/mm3 (3.65-5.03); Red Cell Distribution Width 18.2 % (13.2-15.2)
--- NOTE | 2021-07-10 11:22 | History and Physical Report ---
History of Present Illness Date of examination: 07/10/21 Chief complaint: Labor History of present illness: This is a 31-year-old female 7 para 6 with 5 previous C-sections she presents in labor. Patient has no care her NICKY is based on LMP of 11/03/2020. She denies getting any ultrasounds in any other facilities at all in this . On arrival exam per RN revealed patient to be 6 cm dilated completely effaced. FHTs were reassuring. Patient is visibly uncomfortable and actively laboring. We will proceed with repeat based on patient's LMP. Patient is aware that this baby is premature NICU is aware. Consents have been reviewed and signed. Past History Past Medical History: no pertinent history Past Surgical History: section (x5) Family/Genetic History: denies: sickle cell/trait, neural tube defect, Down's syndrome, cystic fibrosis/trait, congenital heart defect, mental retardation Social history: denies: smoking, alcohol abuse, prescription drug abuse - Obstetrical History Expected Date of Delivery: 08/10/21 Actual Gestation: 35 Week(s) 4 Day(s) : 7 Medications and Allergies Allergies Allergy/AdvReac Type Severity Reaction Status Date / Time hydrocodone Allergy Severe Nausea Verified 05/14/20 13:04 Home Medications Medication Instructions Recorded Confirmed Last Taken Type Ferrous Sulfate [Feosol 325 MG tab] 325 mg PO BID #60 tablet 01/24/19 06/16/20 Unknown Rx HYDROcodone/APAP 5-325 [[place] 1 each PO Q6HR PRN #30 tablet 01/24/19 06/16/20 Unknown Rx 5-325 mg TAB] Ibuprofen [Motrin 800 MG tab] 800 mg PO Q6H PRN #30 tablet 01/24/19 06/16/20 Unknown Rx Vit-Fe Fumar-FA [ 1 each PO QDAY #30 tablet 01/24/19 06/16/20 Unknown Rx Vitamin] guaiFENesin ER [Mucinex ER] 600 mg PO BID #10 tablet 01/24/19 06/16/20 Unknown Rx Erythromycin [Erythromycin Ophth 10 applic OS QID 7 Days #1 tube 09/30/19 06/16/20 Unknown Rx Oint] Ibuprofen [Motrin 800 MG tab] 800 mg PO Q6H PRN #30 tablet 06/16/20 Unknown Rx oxyCODONE /ACETAMINOPHEN [Percocet 1 tab PO Q6H PRN #30 tablet 06/16/20 Unknown Rx 5/325 mg] Ferrous Sulfate [Feosol 325 MG tab] 325 mg PO TID 30 Days #90 tablet 06/18/20 Unknown Rx Active Meds: Active Medications Citric Acid/Sodium Citrate (Bicitra Oral Liqd 30ml) 30 ml PO ONCE CAROLINE Stop: 07/10/21 18:00 Famotidine (Famotidine 20 Mg/2 Ml Inj) 20 mg IV ONCE CAROLINE Stop: 07/10/21 18:00 Lactated Ringer's (Lactated Ringers) 1,000 mls @ 2,250 mls/hr IV PREOP CAROLINE Stop: 07/11/21 11:57 Oxytocin/Sodium Chloride (Pitocin/Ns 30 Unit/500ml) 30 units in 500 mls @ 0 mls/hr IV TITR CAROLINE; Protocol Cefazolin Sodium (Ancef/Sterile Water 2 Gm/20 Ml) 2 gm in 20 mls @ 80 mls/hr IV PREOP NR; Protocol Stop: 07/10/21 18:00 Metoclopramide HCl (Metoclopramide 10 Mg/2 Ml Inj) 10 mg IV ONCE CAROLINE Stop: 07/10/21 18:00 - Vital Signs Vital signs: Vital Signs Pulse BP 70 129/77 07/10/21 10:28 07/10/21 10:28 Temp Pulse Resp BP Pulse Ox 85 129/77 100 07/10/21 11:14 07/10/21 10:28 07/10/21 11:14 - Physical Exam Breasts: Positive: deferred Lungs: Positive: Normal air movement Abdomen: Positive: normal appearance - Obstetrical FHR: category 1 Results Result Diagrams: 07/10/21 11:00 Abnormal lab results 07/10/21 Range/Units 11:00 Hgb 9.6 L (10.1-14.3) gm/dl Hct 29.6 L (30.3-42.9) % MCH 26 L (28-32) pg RDW 18.2 H (13.2-15.2) % [place] % (Auto) 8.2 H (0.0-7.3) % Seg Neutrophils % 72.0 H (40.0-70.0) % All other labs normal. Assessment and Plan - Patient Problems (1) 35 weeks gestation of Current Visit: Yes Status: Acute (2) No care in current Current Visit: No Status: Acute (3) Previous section Onset Date: 01/22/19 Current Visit: No Status: Resolved Plan to address problem: Risk associated with delivery were discussed, including but not limited to, bleeding that may require blood transfusion, infection that may be life threatening, injury to adjacent organs specifically bowel or bladder that may require further surgeries, or major vascular injury. She was also informed that when she has had a delivery she may require repeat deliveries for all subsequent pregnancies. Questions were encouraged and answered, consents were reviewed and signed. Patient voiced understanding and desires to proceed with delivery.
[2021-07-10] MEDS ORDERED: FAMOTIDINE 20 MG/2 ML INJ IV SCH (11:30)
[2021-07-10] MEDS ORDERED: OXYTOCIN DRIP 30 UNITS/500 ML BAG IV SCH (11:30)
[2021-07-10] MEDS ORDERED: LACTATED RINGERS 1,000 ML IV SCH (11:30)
[2021-07-10 11:35] LABS: Amphetamine Screen,Urine Negative; Benzodiazepines Screen,Urine Negative; Cocaine Screen,Urine Negative; Methadone Screen,Urine Negative; Opiate Screen,Urine Negative
[2021-07-10] MEDS ORDERED: miSOPROStol 200 MCG TAB ONE ×2 (11:44→11:46)
[2021-07-10] MEDS ORDERED: METHYLERGONOVINE MALEATE 0.2 MG/ML VIAL IM ONE ×2 (11:44→12:00)
[2021-07-10] MEDS ORDERED: CARBOPROST TROMETHAMINE 250 MCG/1 ML INJ IM ONE (11:44)
[2021-07-10] MEDS ORDERED: CARBOPROST TROMETHAMINE 250 MCG/1 ML INJ IM PRN (12:00)
--- NOTE | 2021-07-10 12:06 | Anesthesia Day of Surgery ---
Anesthesia Day of Surgery - Day of Surgery Patient Examined: Yes Patient H&P Reviewed: Yes Patient is NPO: Yes Beta Blockers: No Cardiac Clearance: No Pulmonary Clearance: No Derick's Test: N/A
--- NOTE | 2021-07-10 12:07 | Anesthesia Consultation ---
Anesthesia Consult and Med Hx Date of service: 07/10/21 - Airway Anesthetic Teeth Evaluation: Good ROM Head & Neck: Adequate Mental/Hyoid Distance: Adequate Mallampati Class: Class III Intubation Access Assessment: Possibly Difficult - Pulmonary Exam CTA: Yes - Cardiac Exam Cardiac Exam: RRR - Pre-Operative Health Status ASA Pre-Surgery Classification: ASA2, Emergency Proposed Anesthetic Plan: Spinal - Pulmonary Hx Smoking: Yes Hx Asthma: No Hx Respiratory Symptoms: No SOB: No COPD: No Hx Pneumonia: No Hx Sleep Apnea: No - Cardiovascular System Hx Hypertension: No Hx Coronary Artery Disease: No Hx Heart Attack/AMI: No Hx Angina: No Hx Percutaneous Transluminal Coronary Angioplasty (PTCA): No Hx Cardia Arrhythmia: No Hx Pacemaker: No Hx Internal Defibrillator: No Hx Valvular Heart Disease: No Hx Heart Murmur: No Hx Peripheral Vascular Disease: No - Central Nervous System Hx Neuromuscular Disorder: No Hx Seizures: No CVA: No Hx Back Pain: No Hx Psychiatric Problems: No - Gastrointestinal Hx Ulcer: No Hx Gastroesophageal Reflux Disease: No - Endocrine Hx Renal Disease: No Hx End Stage Renal Disease: No Hx Liver Disease: No Hx Insulin Dependent Diabetes: No Hx Non-Insulin Dependent Diabetes: No Hx Thyroid Disease: No Hx Hypothyroidism: No Hx Hyperthyroidism: No - Hematic Hx Anemia: No Hx Sickle Cell Disease: No - Other Systems Hx Alcohol Use: No Hx Substance Use: No Hx Cancer: No Hx Obesity: No
[2021-07-10 12:08] LABS: Cannabinoid Screen,Urine PRESUMPTIVE POSITIVE
--- NOTE | 2021-07-10 12:08 | Progress Note ---
Spinal Anesthesia Block - Spinal Anesthesia Block Start Time: 11:32 Stop Time: 12:02 Performed by:: KADE AGRAWAL Procedure: Spinal anesthesia block is being performed for [C/S]. H&P, labs have been reviewed. Patient's questions and concerns have been answered. Informed consent has been performed. Timeout has was performed. Patient in lateral position on bed. Sterile prep and drape was performed. 3 mL 1% lidocaine skin wheal at L [3]-L [4]. Needle introducer advanced. 25-gauge spinal needle advanced, [+] CSF [-] blood. [Marcaine 10mg and Precedex 5mcg] Spinal dose was given. All needles removed. Patient tolerated procedure well.
[2021-07-10] MEDS ORDERED: ONDANSETRON 4 MG/2 ML INJ ONE ×2 (12:23)
[2021-07-10] MEDS ORDERED: ePHEDrine SULFATE 50 MG/1 ML INJ ONE (12:23)
[2021-07-10] MEDS ORDERED: BUPIVACAINE/PF (0.5%) 5 MG/1 ML 30 ML VIAL INFILTRATI ONE (12:23)
[2021-07-10] MEDS ORDERED: diphenhydrAMINE 50 MG/ML VIAL IV PRN (12:30)
[2021-07-10] MEDS ORDERED: PROMETHAZINE 25 MG RECT SUPP PR PRN ×2 (12:30→14:32)
[2021-07-10] MEDS ORDERED: NALOXONE 0.4 MG/1 ML INJ IV PRN (12:30)
[2021-07-10] MEDS ORDERED: ONDANSETRON 4 MG/2 ML INJ IV PRN ×2 (12:30→14:32)
[2021-07-10] MEDS ORDERED: PROMETHAZINE 25 MG TAB PO PRN ×2 (12:30→14:32)
--- NOTE | 2021-07-10 12:31 | Procedure Note ---
OB Delivery Note - Delivery Date of Delivery: 07/10/21 Surgeon: LUKE PECK Estimated blood loss: 200cc - Vaginal Delivery presentation: vertex Delivery position: OA Intrapartum events: no care, labor-<37 weeks, precipitous labor- <3hr Delivery monitor: external FHT Route of delivery: Delivery placenta: spontaneous (iinatct) Episiotomy: none Delivery laceration: other ((B) superficial medial labial minor laceration, hemostatic, no repair required) Anesthesia: other (spinal) Delivery comments: Patient was taken to the OR for c/s d/t history of C/S x5, Spinal was placed wit h her on her left side. After spinal was placed, she was positioned on her back. Exam revealed 10/100/+2. Patient encouraged to push and delivered a viable female . Placenta spontaneously delivered, intact. No evidence of uterine rupture at this time - A at 1 minute: 9 at 5 minutes: 9 Gender: Female (6lbs 2oz)
[2021-07-10] MEDS ORDERED: DIPHENOXYLATE/ATROPINE TAB PO PRN (12:36)
[2021-07-10] MEDS ORDERED: miSOPROStol 200 MCG TAB PR PRN (12:36)
[2021-07-10] MEDS ORDERED: NalbUPHINE 10 MG/1 ML INJ IV PRN (13:00)
[2021-07-10] MEDS ORDERED: diphenhydrAMINE 25 MG CAP PO PRN (14:32)
[2021-07-10] MEDS ORDERED: WITCH HAZEL/ GLYCERIN PAD TP PRN (14:32)
[2021-07-10] MEDS ORDERED: LANOLIN/ZINC/DIMETHICONE (LANSINOH) 7 GM TP PRN (14:32)
[2021-07-10] MEDS ORDERED: ACETAMINOPHEN 500 MG TAB PO PRN (14:32)
[2021-07-10] MEDS ORDERED: MAGNESIUM HYDROXIDE (MOM) ORAL LIQD UDC PO PRN (14:32)
[2021-07-10] MEDS ORDERED: IBUPROFEN 600 MG TAB PO SCH (16:00)
[2021-07-10 17:10] LABS: Hepatitis C Virus Antibody Non-Reactive (NonReactive)
[2021-07-10] MEDS: METHYLERGONOVINE 0.2 MG TABLET PO SCH (18:06)
[2021-07-10] MEDS: IBUPROFEN 800 MG TAB PO PRN (21:14)
[2021-07-11] MEDS: METHYLERGONOVINE 0.2 MG TABLET PO SCH ×2 (00:26→05:41)
[2021-07-11 01:06] LABS: Hematocrit 28.1 % (30.3-42.9); Hemoglobin 8.9 gm/dl (10.1-14.3)
[2021-07-11] MEDS: IBUPROFEN 800 MG TAB PO PRN (05:42)
[2021-07-11] MEDS ORDERED: TETANUS,DIPH,PERTUSS(ACELL) VACCINE 0.5 ML SYRINGE IM ONE (06:00)
[2021-07-11 08:20] VITALS: BP 116/70
--- NOTE | 2021-07-11 08:45 | Discharge Summary ---
Providers - Providers Date of Admission: 07/10/21 12:07 Date of discharge: 07/11/21 (desires d/c home today if baby is discharged) Attending physician: LUKE PECK 07/10/21 14:32 Consult to Case Management [CONS] Routine Services Needed at Discharge: Rail Car [employer] Notified:: yes Phone number called:: [phone] Was contact made?: No Time called:: 16:30 Comment:: No care/ + THC Primary care physician: DESTINY MCGUIRE Hospitalization Reason for admission: Labor Condition: Good Pertinent studies: post delivery H&H 8.9/28.1, asymptomatic anemia d/t acute blood loss. Procedures: Hospital course: complicated by no care. Disposition: 01 HOME / SELF CARE / HOMELESS Final Discharge Diagnosis (Prints w/discharge instructions): Time spent for discharge: 20 - Discharge Diagnoses (1) , delivered Status: Acute Core Measure Documentation - Palliative Care Palliative Care/ Comfort Measures: Not Applicable - Core Measures Any of the following diagnoses?: none Exam - Physical Exam Narrative exam: lochia scant, fundus firm, VSSAF, bottle feeding. - Constitutional Vitals: Temp Pulse Resp BP Pulse Ox 98.3 F 75 18 116/70 100 07/11/21 07:35 07/11/21 07:35 07/11/21 07:35 07/11/21 07:35 07/11/21 07:35 General appearance: Present: no acute distress, well-nourished - EENT Eyes: Present: PERRL ENT: hearing intact, clear oral mucosa - Neck Neck: Present: supple, normal ROM - Respiratory Respiratory effort: normal Respiratory: bilateral: CTA - Cardiovascular Rhythm: regular Heart Sounds: Absent: rub, click - Extremities Extremities: No edema - Abdominal General gastrointestinal: Present: soft, non-tender, non-distended, normal bowel sounds Female genitourinary: Present: normal - Integumentary Integumentary: Present: clear, warm, dry - Musculoskeletal Musculoskeletal: gait normal, strength equal bilaterally - Psychiatric Psychiatric: appropriate mood/affect, intact judgment & insight - Neurologic Neurologic: CNII-XII intact, moves all extremities Plan Activity: no restrictions Diet: regular Follow up with: DESTINY MCGUIRE MD [Primary Care Provider] - 7 Days JAYCE SHELDON MD [Staff Physician] - 6 Weeks (Congratulations, please call [phone] to schedule your visit in 6 weeks. Call for any questions or concerns. )
--- NOTE | 2021-07-11 10:30 | Post Anesthesia Evaluation ---
- Post Anesthesia Evaluation Patient Participated: Yes Airway Patent: Yes Stable Respiratory Function: Yes Nausea/Vomiting: No Temp > 96.8F: Yes Pain Manageable: Yes Adequeate Hydration: Yes Anesthesia Complications: No Block Receding Appropriately: Yes Patient on Ventilator: No
== END 2021-07-11 15:20 | disposition home or self-care (01) | DRG 775 ==
LOC: TRG 09:49 → APU 10:10 → TRG 12:06 → APU 12:07 → OB 13:51
PROVIDERS: ADMIT Obstetrics & Gynecology; ATTEND Obstetrics & Gynecology
PROC: 10E0XZZ Delivery of Products of Conception, External Approach (ICD-10-PCS; principal; 2021-07-10)
PROC: 3E0234Z Introduction of Serum, Toxoid and Vaccine into Muscle, Percutaneous Approach (ICD-10-PCS; 2021-07-11)
DX: O62.3 Precipitate labor (principal); Z37.0 Single live birth; O34.211 Maternal care for low transverse scar from previous cesarean delivery; Z3A.35 35 weeks gestation of pregnancy; Z88.8 Allergy status to other drugs, medicaments and biological substances; O70.0 First degree perineal laceration during delivery; O60.14X0 Preterm labor third trimester with preterm delivery third trimester, not applicable or unspecified; O90.81 Anemia of the puerperium; D62 Acute posthemorrhagic anemia; Z23 Encounter for immunization
CPT/HCPCS: 36415; 80307; 85014; 85018; 85025; 85461; 86592; 86706; 86762; 86803; 86850; 86900; 86901; 87806; 88307; G0378; J2210; J2405; J2765; J2790; J3490